=== PATIENT | female | born 1940 | race Caucasian/White ===

== ENCOUNTER 2017-03-21 13:30 | Inpatient (IN) | payer MEDICARE, OTHER ==
[~2017-03-21] VITALS: Ht 149.9 cm; Wt 79.8 kg
--- NOTE | ~2017-03-21 | ENPV ---
Vascular Lower Extremity Vein Mapping and Lower Extremities DVT Study Procedure Demographics Patient Name MANDA SOLOMON Date of Study 03/24/2017 Patient Number [id number] Gender Female Date of 1940 Age 76 Visit Number [id number] Height 59 Weight 154 Number Referring Jevon Lantigua MD Interpreting Jessica Lutz Physician Jessica Lutz Physician A MD Elizabeth Chambers Md Physician Ordering Jessica Lutz Press Feeder Physician A Wall Insulation Sprayer Kurt Mercer, [facility] Conclusions Summary No evidence of deep vein thrombosis in the right common femoral vein, right proximal femoral vein, and left lower extremity veins. The left greater saphenous vein is patent and suitable for grafting The right mid to distal femoral vein, popliteal vein, posterior tibial veins, peroneal veins, and the greater saphenous vein was not imaged secondary to bandages from post-op femur FX. Procedure Type of Study: Veins:Lower Extremity Vein Mapping, Vein Mapping, Lower Extremities DVT Study, Venous Duplex Lower Extremity Bilateral. Indications for Study:Pre-op CABG. Appropriate Use Criteria:8 Allergies - No known allergies. Patient Status:Routine. Study Location:Inpatient Portable. Technical Quality:Limited visualization due to wounds/dressings. - Preliminary reported to:Dr. Lopez. Risk Factors - The patient's risk factor(s) include: diabetes mellitus, dyslipidemia and treated arterial hypertension. - The patient's last creatinine was 0.9 mg/dl. Velocities are measured in cm/s ; Diameters are measured in cm Right Lower Extremities DVT Study Measurements Right 2D and Doppler Measurements + + + + +---------+------+--------+ !Location !Visualized!Compressibility!Thrombosis!Signal !Reflux!Reflux ! ! ! ! ! ! ! !(sec) ! + + + + +---------+------+--------+ !GSV Thigh !Yes !Yes !None !Pulsatile! ! ! + + + + +---------+------+--------+ !Common !Yes !Yes !None !Pulsatile! ! ! !Femoral ! ! ! ! ! ! ! + + + + +---------+------+--------+ !Prox !No ! ! ! ! ! ! !Femoral ! ! ! ! ! ! ! + + + + +---------+------+--------+ !Mid !No ! ! ! ! ! ! !Femoral ! ! ! ! ! ! ! + + + + +---------+------+--------+ !Dist !No ! ! ! ! ! ! !Femoral ! ! ! ! ! ! ! + + + + +---------+------+--------+ !Popliteal !No ! ! ! ! ! ! + + + + +---------+------+--------+ !Gastroc !No ! ! ! ! ! ! + + + + +---------+------+--------+ !PTV !No ! ! ! ! ! ! + + + + +---------+------+--------+ !Peroneal !No ! ! ! ! ! ! + + + + +---------+------+--------+ Left Lower Extremities DVT Study Measurements Left 2D and Doppler Measurements + + + + +---------+------+--------+ !Location !Visualized!Compressibility!Thrombosis!Signal !Reflux!Reflux ! ! ! ! ! ! ! !(sec) ! + + + + +---------+------+--------+ !GSV Thigh !Yes !Yes !None !Pulsatile!No ! ! + + + + +---------+------+--------+ !Common !Yes !Yes !None !Pulsatile!No ! ! !Femoral ! ! ! ! ! ! ! + + + + +---------+------+--------+ !Prox !Yes !Yes !None !Phasic !No ! ! !Femoral ! ! ! ! ! ! ! + + + + +---------+------+--------+ !Mid !Yes !Yes !None !Phasic !No ! ! !Femoral ! ! ! ! ! ! ! + + + + +---------+------+--------+ !Dist !Yes !Yes !None !Phasic !No ! ! !Femoral ! ! ! ! ! ! ! + + + + +---------+------+--------+ !Popliteal !Yes !Yes !None !Phasic !No ! ! + + + + +---------+------+--------+ !Gastroc !Yes !Yes !None !Phasic !No ! ! + + + + +---------+------+--------+ !PTV !Yes !Yes !None !Phasic !No ! ! + + + + +---------+------+--------+ !Peroneal !No ! ! ! ! ! ! + + + + +---------+------+--------+ Velocities are measured in cm/s ; Diameters are measured in cm + ++--------++--------+ !Superficial - Great Saphenous Vein !!Right !!Left ! + ++--------++--------+ !Location !!Diameter!!Diameter! + ++--------++--------+ !Sapheno Femoral Junction !!0.35 !!0.5 ! + ++--------++--------+ !GSV High Thigh !! !!0.25 ! + ++--------++--------+ !GSV Mid Thigh !! !!0.33 ! + ++--------++--------+ !GSV Low Thigh !! !!0.35 ! + ++--------++--------+ !GSV Knee !! !!0.32 ! + ++--------++--------+ !GSV High Calf !! !!0.31 ! + ++--------++--------+ !GSV Mid Calf !! !!0.23 ! + ++--------++--------+ !GSV Low Calf !! !!0.2 ! + ++--------++--------+ - Number of vein branches on the left side:1 above knee and 1 below knee. Signature dtt: Parul Lopez dtd: 03/24/17 1449 Physician Self Edit
--- NOTE | ~2017-03-21 | CON ---
PATIENT'S NAME: MANDA SOLOMON [facility] AGE: 76 Y [address] ROOM: [place] [address] LOCATION: GPCU ADMIT DATE: 03/21/2017 Consultation DISCHARGE DATE: FAMILY PHYSICIAN: Artem Escoto MD ATTENDING PHYSICIAN: NAHUM ZAPATA DATE OF CONSULTATION: 03/23/2017 REFERRING PHYSICIAN: MASOUD GARCIA MD REASON FOR CARDIOLOGY CONSULT: Chest pain. HISTORY OF PRESENT ILLNESS: This is a 76-year-old female admitted with a right distal femur fracture and is currently status post open reduction and internal fixation of that fracture. Her cardiac history includes paroxysmal atrial tachycardia with a cardiac ablation performed at [facility] about [address] Magana[address] She also has a history of hypertension and hyperlipidemia. Overnight during her postoperative period, she developed left- sided chest pain that she describes as pressure and palpitations. At the time of this consult, she is currently pain-free. She denies any recent complaints of presyncope, syncope, shortness of breath, dyspnea on exertion, nausea, or vomiting. She is also quite active at the age of 76 and is able to ambulate extensive distances and handle stairs without difficulties. Overall, she is able to describe activities that give her a MET evaluations score of greater than 3. Her fracture happened due to tripping over a dog at home and having a twisting motion of her leg with immediate pain to her right lower leg around her knee post fall. PAST MEDICAL HISTORY: As listed in the HPI, as well as type 2 diabetes mellitus and mild asthma. PAST SURGICAL HISTORY: 1. Tonsillectomy and adenoidectomy. 2. D and C. 3. Total right knee arthroscopy. 4. Left wrist fracture repair. 5. Paroxysmal atrial tachycardia ablation about 2 years ago. FAMILY HISTORY: The patient's mother had a history of congestive heart failure. Her father had a history of Hodgkin lymphoma. SOCIAL HISTORY: The patient is a former cigarette smoker. She smoked half a pack per day for PATIENT'S NAME: MANDA SOLOMON [facility] AGE: 76 Y [address] ROOM: [place] [address] LOCATION: GPCU ADMIT DATE: 03/21/2017 Consultation DISCHARGE DATE: FAMILY PHYSICIAN: Artem Escoto MD ATTENDING PHYSICIAN: NAHUM ZAPATA a total of 8 years. She denies alcohol or illicit drug use. CURRENT MEDICATIONS: 1. Heparin IV per ACS protocol. 2. Nitroglycerin IV as needed for chest pain. 3. Aspirin 81 mg p.o. daily. 4. Coreg 6.25 mg p.o. twice daily. 5. Os-Galdino plus D 500 mg p.o. daily. 6. Multivitamin one tablet p.o. daily. 7. Z-Gen one tablet p.o. daily. 8. NovoLog subcu on a mild sliding scale per a.c. and h.s. Accu-Cheks. MEDICATION ALLERGIES: No known medication allergies. REVIEW OF SYSTEMS: Pertinent positive review of systems as listed in the HPI. All other review of systems evaluated and negative. DIAGNOSTIC DATA: Cardiac enzyme trend shows a CPK of 345, then 425, then 490; CK-MB of 5.0, then 12.5, then 19.2; and troponin-I of 0.118, then 3.57, and finally 6.95. Basic metabolic panel shows a sodium of 142, potassium 4.0, BUN of 9, creatinine 0.6, and a glucose of 177. She has a magnesium of 1.8 and a proBNP of 4247. Her echocardiogram shows an estimated left ventricular ejection fraction of 20%. Full report available for review. PHYSICAL EXAMINATION: VITAL SIGNS: Temperature 97.8, pulse 106, respirations 16, blood pressure 126/61, and O2 saturation 98% on 1 L nasal cannula. The patient weighs 70.1 kg. SKIN: [place], warm, and dry. EYES: Sclerae clear. No xanthelasma. ENT: Oral mucosa is pink and moist. No jugular venous distention or carotid bruits. CHEST: Respirations are even and unlabored. Lung sounds are clear to bilateral upper lobes. They are diminished to bilateral lower lobes. ABDOMEN: Soft and nontender. MUSCULOSKELETAL: Equal muscle strength to upper and lower extremities bilaterally against resistance. Her right lower extremity is in an Vik wrap as well as an immobilizer, but sensation, circulation, and movement are all within normal limits. EXTREMITIES: Peripheral pulses palpable. No clubbing, cyanosis, or edema. PSYCHIATRIC: Alert and oriented. Mood and affect are appropriate. PATIENT'S NAME: MANDA SOLOMON [facility] AGE: 76 Y [address] ROOM: [id number] [place], [place] [address] [facility] ADMIT DATE: 03/21/2017 Consultation DISCHARGE DATE: FAMILY PHYSICIAN: Artem Escoto MD ATTENDING PHYSICIAN: NAHUM ZAPATA IMPRESSION AND PLAN: Per Dr. Lopez. 1. Non-ST elevated myocardial infarction. She did have complaints of chest pain and palpitations, and as of this dictation, she is status post selective coronary angiography and is pending a cardiothoracic surgery consult for coronary artery bypass grafting. We will continue her on guideline-directed medical therapy until that consult is completed and full recommendations are received. 2. History of paroxysmal atrial tachycardia, status post cardiac ablation about 2 years ago. We will try and get those records for full review from Dr. Magana's office. 3. Hypertension, currently well controlled. 4. Status post open reduction and internal fixation of a right distal femur fracture per Dr. Zapata. We will continue to monitor, evaluate, and treat as appropriate. Thank you for this consult. Thank you for allowing [facility] to interact in the care of this patient. PETER COVINGTON APRN FOR [facility] SONA WHALEN/abl /[id number] d: 03/23/17 1629 t: 04/08/17 1133, CONSULTATION REPORT
--- NOTE | ~2017-03-21 | ENPV ---
Carotid Duplex Study Demographics Patient Name MANDA SOLOMON Date of Study 03/24/2017 Patient Number [id number] Gender Female Date of 1940 Age 76 Visit Number [id number] Height 59 Weight 154 Number Referring Jevon Lantigua MD Interpreting Jessica Lutz Physician Jessica Lutz Physician A MD Elizabeth Chambers Md Physician Ordering Jessica Lutz Bone Glue Maker Physician A Domestic Technician Kurt Mercer [facility] Conclusions Summary The right proximal internal carotid artery has moderate, 50-69%, stenosis by heterogeneous/calcific plaque. The left proximal internal carotid artery has severe more than 70% stenosis by heterogeneous/calcific plaque. The velocity recorded is during a post extrasystolic beat however Bilateral vertebral arteries are antegrade. Procedure Type of Study: Cerebral:Carotid, Carotid Doppler Bilateral. Indications for Study:Pre-Op CABG and Pre-Op clearance. Appropriate Use Criteria:6 Allergies - No known allergies. Patient Status:Routine. Study Location:Inpatient Portable. Technical Quality:Adequate visualization. - Preliminary reported to:. Risk Factors - The patient's risk factor(s) include: diabetes mellitus, dyslipidemia and treated arterial hypertension. - The patient's last creatinine was 0.9 mg/dl. Velocities are measured in cm/s ; Diameters are measured in cm Carotid Right Measurements Carotid Left Measurements + +--------+--------+ + + + +--------+ --------+ + + !Location !PSV !EDV !Angle !%Stenosis ! !Location !PSV ! EDV !Angle !%Stenosis ! + +--------+--------+ + + + +--------+ --------+ + + !Prox CCA !134 !18 !56 ! ! !Prox CCA !123 ! 15 !56 ! ! + +--------+--------+ + + + +--------+ --------+ + + !Dist CCA !118 !21 !60 ! ! !Dist CCA !70 ! 10 !56 ! ! + +--------+--------+ + + + +--------+ --------+ + + !Prox ICA !160 !22 !60 !40-59% ! !Prox ICA !289 ! 55 !56 !75-80% ! + +--------+--------+ + + + +--------+ --------+ + + !Dist ICA !127 !30 !56 ! ! !Dist ICA !135 ! 40 !60 ! ! + +--------+--------+ + + + +--------+ --------+ + + !Prox ECA !127 ! !60 ! ! !Prox ECA !318 ! !54 ! ! + +--------+--------+ + + + +--------+ --------+ + + !Vertebral !61 !15 !56 ! ! !Vertebral !72 ! 21 !56 ! ! + +--------+--------+ + + + +--------+ --------+ + + !Subclavian !133 ! ! ! ! !Subclavian !125 ! ! ! ! + +--------+--------+ + + + +--------+ --------+ + + - There is antegrade vertebral flow noted on the right side. - There is antegrade verte bral flow noted on the left side. - Add'l Measurements:ICAPSV/CCAPSV 1.19.ICAEDV/CCAEDV 1.69. - Add'l Measurements:ICAPS V/CCAPSV 2.35.ICAEDV/CCAEDV 3.68. Signature dtt: Parul Lopez dtd: 03/24/17 1434 Physician Self Edit
--- NOTE | ~2017-03-21 | OR ---
PATIENT'S NAME: MANDA JACOBSEN [facility] AGE: 76 Y [address] ROOM: [place] [address] LOCATION: GICU ADMIT DATE: 03/21/2017 OR/Procedure Report DISCHARGE DATE: FAMILY PHYSICIAN: Artem Escoto MD ATTENDING PHYSICIAN: NAHUM ZAPATA SURGEON: Ceci Velasquez MD LIFT DRIVER: Lurdes Cali RN. DATE OF PROCEDURE: 03/27/2017 PROCEDURE: 1. Right radial arterial line placement. 2. Right internal jugular 9-Dutch sheath, central line placement. 3. 7-Dutch continuous cardiac output, [place]-Melissa catheter placement. INDICATIONS FOR PROCEDURE: 1. Need for perioperative xzfi-ky-rbyt blood pressure monitoring as well as frequent arterial blood gas analysis. 2. Need for central venous access for administration of fluid, blood products, and central venous pressure monitoring and [place]-Melissa catheter placement. 3. Need for perioperative yhwr-jk-[id number] pulmonary artery pressure monitoring and continuous cardiac output monitoring. PREOPERATIVE DIAGNOSES: 1. Multivessel coronary artery disease. 2. Hypertension. 3. Hyperlipidemia. 4. Diabetes mellitus type 2. 5. Right periprosthetic femur fracture. 6. Asthma. POSTOPERATIVE DIAGNOSES: 1. Multivessel coronary artery disease. 2. Hypertension. 3. Hyperlipidemia. 4. Diabetes mellitus type 2. 5. Right periprosthetic femur fracture. 6. Asthma. COMPLICATIONS: None noted. ESTIMATED BLOOD LOSS: Minimal. CONSENT: Informed consent was obtained preoperatively including discussion of risks, benefits, and alternatives. Ms. Jacobsen said that she has understood PATIENT'S NAME: MANDA JACOBSEN [facility] AGE: 76 Y [address] ROOM: [place] [address] LOCATION: GICU ADMIT DATE: 03/21/2017 OR/Procedure Report DISCHARGE DATE: FAMILY PHYSICIAN: Artem Escoto MD ATTENDING PHYSICIAN: NAHUM ZAPATA the above procedures, risks, benefits, alternatives, and agreed for me to proceed. DESCRIPTION OF PROCEDURE: In the preoperative area with the patient in supine position, right and left wrist supinated, sterile prep with ChloraPrep to each wrist, 1% lidocaine into subcutaneous tissues in a sterile fashion. Utilizing sterile technique, a 20-gauge Arrow catheter was used in separate attempts to cannulate both the left and the right artery, however, I was unable to thread the wire on each attempts. Pressure held and dressing applied over the area. We proceeded to the operating room. With the patient in supine position, nitrous oxide with oxygen at 50% administered via the anesthesia circuit. Right wrist supinated, sterile prep with ChloraPrep utilizing real-time ultrasound guidance in a sterile fashion, 1% lidocaine into subcutaneous tissues of the right wrist utilizing 20-gauge Arrow catheter in a sterile technique. The right radial artery was cannulated in first attempt without difficulty. Pulsatile blood flow. The catheter de-aired and flushed with saline solution. A needle and wire removed intact. Sterile occlusive Tegaderm dressing applied, good correlation of noninvasive blood pressure monitoring. The patient tolerated the procedures well. After induction of anesthesia, patient placed in Trendelenburg position. Ultrasound for confirmation of right internal jugular venous anatomy utilizing ChloraPrep to the right neck. Sterile full-body drape, sterile gown, sterile gloves used. Surgical mask and cap worn at all time. Utilizing 16-gauge needle, in an anterior approach, the right internal jugular vein was scanned at first attempt without difficulty. Nonpulsatile blood flow. Dark blood aspirated. Over a wire, a 9-Dutch sheath was inserted, 10 cm without difficulty. Wire and needle were removed intact. Catheter was sutured in place. Sterile occlusive Tegaderm dressing applied. Without a break in the above sterile technique, a 7-Dutch [place] continuous cardiac output [place]-Melissa catheter was floated through the previously placed right internal jugular central line into the SVC, right atrium, right ventricle, and pulmonary artery without difficulty. Initial pulmonary artery pressures were 46/24. Pulmonary capillary wedge pressure of 26 was obtained at 52 cm. Balloon placed in down position, catheter withdrawn to 48 cm. The patient tolerated the procedures well. Postoperative chest x-ray will be ordered. CECI VELASQUEZ MD PATIENT'S NAME: MANDA JACOBSEN [facility] AGE: 76 Y [address] ROOM: [place] [address] LOCATION: GICU ADMIT DATE: 03/21/2017 OR/Procedure Report DISCHARGE DATE: FAMILY PHYSICIAN: Artem Escoto MD ATTENDING PHYSICIAN: NAHUM ZAPATA RRS/modl /[id number] d: 03/27/17 1421 t: 03/28/17 1510, OPERATIVE SUMMARY
--- NOTE | ~2017-03-21 | CON ---
PATIENT'S NAME: MANDA SOLOMON [facility] AGE: 76 Y [address] ROOM: [facility] [place] [address] LOCATION: GPCU ADMIT DATE: 03/21/2017 Consultation DISCHARGE DATE: FAMILY PHYSICIAN: Artem Escoto MD ATTENDING PHYSICIAN: NAHUM ZAPATA DATE OF CONSULTATION: 03/23/2017 REFERRING PHYSICIAN: MASOUD GARCIA MD REQUESTING PHYSICIAN: Dr. Lopez. REASON FOR CONSULTATION: Coronary artery disease, multivessel. HISTORY OF PRESENT ILLNESS: The patient is a 76-year-old, white female, who on March 20, suffered a periprosthetic distal right femur fracture and was transferred from the [facility] to [facility] and was admitted for surgical remediation. This was performed by Dr. Zapata on March 22, consisting of an ORIF of the right periprosthetic distal femur. Following the procedure, the patient was transferred to the orthopedic floor here at [facility]. This morning, however, approximately 2:45 a.m., the patient began having chest pain. Hospitalists were contacted. Cardiac enzymes and EKG were performed. The patient did have elevated cardiac enzymes. The patient was transferred to the progressive care floor as per the advice of Dr. Lopez who then later took the patient to the cardiac catheterization lab. Findings in the lab included obstructive coronary artery disease to the LAD, diagonal, circumflex, and the right system. The patient did have an echocardiogram as well with an ejection fraction finding of 20%, mild pulmonary hypertension with RVSP of 39 mmHg. There was no significant valvular abnormalities noted. The patient does have a history of diabetes mellitus, type 2, which is in fairly good control. She also has a history of atrial tachycardia for which she underwent an ablation approximately 2 years previous with no known further complications. Dr. Cuellar did review the catheterization studies and did see the patient in consultation. PAST MEDICAL HISTORY: Illnesses: Hypertension, dyslipidemia, history of atrial tachycardia, anxiety, osteoarthritis, diabetes mellitus type 2, and mild intermittent asthma. Surgery/Procedures: Left wrist fracture, tonsillectomy, right total knee arthroplasty, right total hip arthroplasty, recent ORIF right femur, D and C, colonoscopy, and cardiac ablation. PATIENT'S NAME: MANDA SOLOMON [facility] AGE: 76 Y [address] ROOM: [id number] [place], [place] [address] LOCATION: [facility] ADMIT DATE: 03/21/2017 Consultation DISCHARGE DATE: FAMILY PHYSICIAN: Artem Escoto MD ATTENDING PHYSICIAN: NAHUM ZAPATA ALLERGIES: NO KNOWN DRUG ALLERGIES. SOCIAL HISTORY: The patient resides in [place]. She lives with her son. She is . She is retired from a career working as a registered nurse. She has a very remote history of tobacco use. No alcohol use. FAMILY HISTORY: Her mother had history with congestive heart failure. Her father had a history with Hodgkin lymphoma and she had a brother who has had a stroke and a valve replaced. MEDICATIONS: 1. Tylenol 650 mg q.4 hours p.r.n. pain. 2. Albuterol 2 puffs per inhalation q.4 hours p.r.n. wheezing. 3. Aspirin 325 mg daily. 4. Excedrin Migraine one tab p.o. b.i.d. 5. Os-Galdino 500 mg daily. 6. Benadryl 25 mg daily. 7. 1% hydrocortisone acetate applied topically p.r.n. rash. 8. Ibuprofen 200 mg daily. 9. Prinivil 5 mg daily. 10. Glucophage 850 mg b.i.d. 11. Multivitamin daily. 12. Vitamin B complex daily. SYSTEM REVIEW: GENERAL: The patient has not had any recent weight or appetite problems. She was in her general state of health as of March 20 with good mobility and no dysfunction until after she took a tumble over one of her dogs, which resulted in the right femur fracture. The findings of the cardiac disease were not of consideration until this event. HEENT: No visual complaints. She does wear glasses. No hearing complaints. She does have seasonal allergies. No difficulty swallowing. She does have lower denture. RESPIRATORY: No unusual cough. Some intermittent wheezing from asthma, which is mild. No shortness of breath, PND, or HARVEY. CARDIOVASCULAR: Prior to early this morning, the patient had not suffered any chest pain, chest pressure, or palpitations. She did have a history of tachycardia for which she underwent what is deemed a successful ablation. No intermittent claudication. Prior to surgery no known problems with excessive edema. GI: No ongoing nausea, vomiting, constipation, or diarrhea. The patient did PATIENT'S NAME: MANDA SOLOMON [facility] AGE: 76 Y [address] ROOM: [id number] [place], [place] [address] LOCATION: GPCU ADMIT DATE: 03/21/2017 Consultation DISCHARGE DATE: FAMILY PHYSICIAN: Artem Escoto MD ATTENDING PHYSICIAN: NAHUM ZAPATA have a recent bout with melena after she had taken ibuprofen for left knee pain. The patient does have a chronic left knee osteoarthritis and does get steroid injections. She uses the NSAIDs for the intermittent relief of pain. : Does have some urinary incontinence. MUSCULOSKELETAL: Generalized arthritic aches and pains with more pronounced left osteoarthritis. NEUROLOGIC: No frequent or severe headaches. No history of seizures, memory loss, or syncope. PSYCHIATRIC: Does have a history of some anxiety. ENDOCRINE: Does have a history of diabetes for which she does take medication. Her hemoglobin A1c is noted to be at 6.0 back in January of 2017. INTEGUMENT: No known skin diseases. PHYSICAL EXAMINATION: VITAL SIGNS: Blood pressure 97/53, pulse is 76, respirations 12, temp is 97.2, O2 saturations 99% on 1 L. Height is 149.86 cm and weight is 70.10 kg. GENERAL: The patient is very pleasant. She is somewhat somnolent. Family is here to answer some of the questions. HEENT: Atraumatic. The patient appears her stated age. EOMIs intact. Conjunctivae clear. LUNGS: Clear to auscultation in the anterior. CARDIOVASCULAR: Regular rate and rhythm. ABDOMEN: Obese, soft, nontender by 4 quadrants. Positive bowel sounds throughout. EXTREMITIES: The patient does have a right lower extremity immobilizer. She also has a right wrist band status post cardiac catheterization with some right hand swelling. NEUROLOGIC: Alert and oriented but somnolent. LABORATORY AND TEST RESULTS: CBC: WBC 6.5, hemoglobin 7.3, hematocrit 22.8, platelets are 128. INR is 0.95. Basic metabolic panel shows sodium at 142, potassium at 4.0, glucose at 177, calcium 8.7, BUN 9, creatinine 0.6. ProBNP is 4247. Her magnesium was 1.8. Echo and cardiac catheterization results as per HPI. IMPRESSION: 1. Myocardial infarction. 2. Depressed ejection fraction, 20%. 3. Diabetes mellitus. 4. Recent right femur fracture. 5. History of atrial tachycardia. RECOMMENDATIONS AND PLAN: Dr. Cuellar spoke to the patient and her family with regard to surgical revascularization. Per the review of the cardiac catheterization, the patient PATIENT'S NAME: MANDA SOLOMON [facility] AGE: 76 Y [address] ROOM: [place] [address] LOCATION: [facility] ADMIT DATE: 03/21/2017 Consultation DISCHARGE DATE: FAMILY PHYSICIAN: Artem Escoto MD ATTENDING PHYSICIAN: NAHUM ZAPATA will require 4-vessel bypass, this being to the LAD, diagonal, obtuse marginal, and PDA. In addition, given the depressed ejection fraction, she may require an intra-aortic balloon placement at the time of the surgery. This was all explained. Risks and benefits of surgery were given to the patient and her family. This included but were not limited to, bleeding, requiring transfusion or return to the operative suite, myocardial infarction, cerebrovascular accident, renal and/or pulmonary failure. Also discussed were arrhythmias and infection as well as operative and postoperative mortality. The patient is currently comfortable up on the progressive care floor. She is utilizing heparin and nitroglycerin. Her surgery will be scheduled for March 26 in the afternoon. The patient and family verbalize understanding of this. The patient consents to proceed to surgery. We will begin her preoperative evaluation. Certainly if anything changes with regard to chest pain, the patient will be taken to surgery on a more emergent basis. I would like to thank Dr. Lopez for allowing us to participate in the care of this pleasant lady. BISHNU GALDAMEZ APRN FOR [employer]UELLAR, DO QUILESQ/modl /[id number] d: 03/23/17 1704 t: 04/04/17 1553, CONSULTATION REPORT
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
--- NOTE | ~2017-03-21 | OR ---
PATIENT'S NAME: MANDA JACOBSEN [facility] AGE: 76 Y [address] ROOM: [place] [address] LOCATION: [facility] ADMIT DATE: 03/21/2017 OR/Procedure Report DISCHARGE DATE: FAMILY PHYSICIAN: Artem Escoto MD ATTENDING PHYSICIAN: NAHUM ZAPATA SURGEON: Nahum Zapata MD MANAGER SIGN: Heriberto Fitzgerald PA-C. DATE OF PROCEDURE: 03/22/2017 PREOPERATIVE DIAGNOSIS: Right distal periprosthetic fracture of the femur. POSTOPERATIVE DIAGNOSIS: Right distal periprosthetic fracture of the femur. PROCEDURES PERFORMED: 1. Open reduction and internal fixation of right periprosthetic distal femur fracture. 2. Use of intraoperative fluoroscopy, less than 1 hour. Use of INFUSE recombinant bone morphogenic protein to bone graft. ANESTHESIA: General endotracheal anesthesia with peripheral nerve blocks. FLUIDS: See Anesthesia report. ESTIMATED BLOOD LOSS: Minimal. TOURNIQUET: Right proximal thigh 250 mmHg. SPECIMENS: None. COMPLICATIONS: None. DISPOSITION: Stable in PACU. COUNTS: All counts were correct. IMPLANTS: Synthes right distal femur periarticular locking plate and screws. INDICATIONS: Ms. Jacobsen is a 76-year-old female, who underwent the noted procedures above. The risks, benefits, and alternatives pursuing surgical intervention were discussed with the patient and her family. She elected to proceed with surgery. I marked the patient's right lower extremity indicating the correct surgical site. Anesthesia was consulted for their perioperative evaluation of the patient. OPERATIVE REPORT IN DETAIL: The patient was brought from the holding area to PATIENT'S NAME: MANDA JACOBSEN [facility] AGE: 76 Y [address] ROOM: [place] [address] LOCATION: [facility] ADMIT DATE: 03/21/2017 OR/Procedure Report DISCHARGE DATE: FAMILY PHYSICIAN: Artem Escoto MD ATTENDING PHYSICIAN: NAHUM ZAPATA the operating room. A time-out was performed. General endotracheal anesthesia was administered. The patient's right lower extremity was prepped and draped in a sterile fashion. I turned my attention to the right leg. The Esmarch was used to exsanguinate the limb. The tourniquet was inflated to 250 mmHg. I began with a lateral incision through skin and subcutaneous tissue, tensor fascia goldie down through muscle to bone. I identified the fracture site. I then introduced intraoperative fluoroscopy. I identified the fracture. I had my PA clinic assistant pull traction across the fracture site and I placed 2 K-wires along with using a bone hook to reduce the distal femur fracture. The patient had a right total knee in place. I was therefore able to use this to help alignment of the reduction. I then introduced my plate. I provisionally pinned the plate both distally and proximally. I confirmed its position fluoroscopically. I cheated the plate distally in order to gain fixation in the cement mantle seeing that the fracture was rather distal. There was comminution at the fracture site and the patient was notably osteopenic. I then drilled for, measured, and placed a compression screw distally to achieve compression of the plate to the bone. I then drilled for, measured, and placed variable angle locking screws in order to achieve multiple points of fixation of the distal femur. Once distal fixation was achieved and confirmed fluoroscopically, I turned my attention to the proximal aspect of the plate. I drilled for, measured, and placed a compression screw to attempt to fixate the plate to the femoral shaft. I was unable to compress the plate completely down to the bone without losing the reduction distally. I therefore drilled for, measured, and placed locking screws creating a fixed angle construct proximally. I then fluoroscopically confirmed a well reduced and fixed periprosthetic distal femur fracture. I then took the knee through range of motion. The patient's range of motion was limited at best 0 to 90 degrees of flexion. This appears to corroborate with her contralateral knee that had also very limited range of motion. The wound was then copiously irrigated. I placed INFUSE bone graft to help in the healing process. Once the INFUSE was placed, I then used 0 Vicryl suture to approximate the tensor fascia goldie. 2-0 Vicryl suture was used to approximate the subcutaneous tissue. [place] were used to approximate the skin. Sterile dressing was placed in form of Xeroform, followed by 4x4 and Mepilex. The tourniquet was let down. The patient's limb reperfused. She was then dressed with Webril and Vik from the foot up to the proximal thigh. A knee PATIENT'S NAME: MANDA JACOBSEN [facility] AGE: 76 Y [address] ROOM: [address] [address] LOCATION: [facility] ADMIT DATE: 03/21/2017 OR/Procedure Report DISCHARGE DATE: FAMILY PHYSICIAN: Artem Escoto MD ATTENDING PHYSICIAN: NAHUM ZAPATA immobilizer was then placed. The patient was then transferred from the operating room table onto the stretcher and brought to recovery room in stable condition. There were no intraoperative complications noted. Of note, my PA, Heriberto Fitzgerald PA-C, played an integral role in the intraoperative care of this patient. This included preoperative positioning, intraoperative expert retraction, and closing and dressing functions. IMPRESSION: The patient is status post the noted procedures above. PLAN: The patient will be toe-touch weightbearing on the right lower extremity in a knee immobilizer. Postoperative pain control in the form of Percocet and IV morphine as needed for pain. Postoperative antibiotics will be administered per routine. DVT prophylaxis will be in the form of Lovenox. Physical Therapy and Occupational Therapy will be consulted for early ambulation and prevention of deconditioning. The hospitalist will continue to manage the patient's concomitant medical comorbidities. I will continue to monitor the patient closely in the postoperative period. MD MELIDA JASSO/modl /[id number] d: 03/23/17 0018 t: 03/23/17 0819, OPERATIVE SUMMARY
--- NOTE | ~2017-03-21 | CON ---
PATIENT'S NAME: LAURA JACOBSEN [facility] AGE: 76 Y [address] ROOM: [address] [place], [place] [address] LOCATION: G3N ADMIT DATE: 03/21/2017 Consultation DISCHARGE DATE: FAMILY PHYSICIAN: Artem Escoto MD ATTENDING PHYSICIAN: NAHUM ZAPATA REFERRING PHYSICIAN: MASOUD RAMSEY MD This is a consultation for Dr. Nahum Zapata for medical management. REASON FOR CONSULTATION: Medical clearance for right periprosthetic femur fracture. CHIEF COMPLAINT: Right knee pain. 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 She fell to her knees with her legs tucked underneath her and experienced immediate right knee pain greater than the left. Her son who lives with her assisted her back into the house and was put up in the recliner and elevated and iced her knee and took an ibuprofen. Still having significant pain this morning, she went and saw her primary care doctor who by x-ray found a right periprosthetic femur fracture. She was transported to [facility] for further evaluation and management by the Orthopedic Team. Laura has a past medical history to include paroxysmal atrial tachycardia, status post ablation approximately 2 years ago; type 2 diabetes mellitus, noninsulin-dependent and uncomplicated, on metformin with a recent hemoglobin A1c of 6.0 back in January. She does not currently check her sugars at home. She does also have a history of essential hypertension and hyperlipidemia, well controlled on her current medications. She also has history of mild asthma with worsening during seasonal allergies. Typically, rather relatively functional 76-year-old female who is able to ambulate for many blocks and flights of stairs without stopping. Her MET score is greater than 4. Currently, lying in bed without any complication, complaining of right knee pain, it is relatively controlled at rest. She denies any numbness or tingling into her legs. She does complain of pain with any movement. She denies any lightheadedness, dizziness, chest pain, palpitations, shortness of breath, or cough. No nausea or vomiting. She does tell me one point of pertinent information that her orthopedist in [place] had been treating her left knee with cortisone injections, she has had them x3 back last fall. She had been taking a large amount of ibuprofen in which she developed black tarry stools and has stopped NSAID use immediately. She never was fully evaluated by a provider. Her stools have normalized and PATIENT'S NAME: LAURA JACOBSEN [facility] AGE: 76 Y [address] ROOM: [place] [address] LOCATION: [facility] ADMIT DATE: 03/21/2017 Consultation DISCHARGE DATE: FAMILY PHYSICIAN: Artem Escoto MD ATTENDING PHYSICIAN: NAHUM ZAPATA she now takes acetaminophen for her joint pains. She has no history urinary problems. No burning, painfulness, or signs of retention, although a Valdez catheter has been placed at the outlying facility due to her decreased mobility and pain. REVIEW OF SYSTEMS: All review of systems was completed and determined negative other than mentioned above in the HPI. ALLERGIES: NONE. HOME MEDICATIONS: 1. Acetaminophen 325 mg 2 tablets every 4 hours as needed for pain. 2. Albuterol sulfate 2 puffs inhalation every 4 hours as needed for wheezing. 3. Aspirin 325 mg p.o. daily. 4. Gciygtf-gaumbcpykkuvp-qaismrld tablet 1 tablet p.o. twice daily as needed. 5. Calcium with vitamin D 500 mg 1 tablet p.o. every day. 6. Benadryl 25 mg p.o. every day as needed. 7. Hydrocortisone cream 1% one application topically every day as needed. 8. Ibuprofen 200 mg p.o. every day. 9. Lisinopril 5 mg p.o. every day. 10. Glucophage 850 mg p.o. twice daily. 11. Multivitamin 1 tablet p.o. every day. 12. Vitamin B complex 1 tablet p.o. every day. PAST MEDICAL HISTORY: To include: 1. Paroxysmal atrial tachycardia. 2. Asthma, mild, intermittent. 3. Hyperlipidemia. 4. Pww-vmoylaq-guzhrzuan type 2 diabetes mellitus. 5. Essential hypertension. 6. Obesity. PAST SURGICAL HISTORY: To include: 1. Cardiac ablation in 2013. 2. Right hip replacement. 3. Right knee replacement. 4. D and C. 5. T and A. PATIENT'S NAME: LAURA JACOBSEN [facility] AGE: 76 Y [address] ROOM: [address] [address] LOCATION: G3N ADMIT DATE: 03/21/2017 Consultation DISCHARGE DATE: FAMILY PHYSICIAN: Artem Escoto MD ATTENDING PHYSICIAN: NAHUM ZAPATA SOCIAL HISTORY: The patient is a retired RN, who lives at home with her son. She denies any alcohol use or illicit drug use. She denies any cigarette use. FAMILY MEDICAL HISTORY: 1. Mother had hypertension and congestive heart failure and is . 2. Father had Hodgkin lymphoma. PHYSICAL EXAMINATION: GENERAL: Laura is a 76-year-old, female, who looks and appears her stated age. HEENT: Her head is normocephalic, atraumatic. Eyes: Extraocular movements are intact. Pupils are equal, round, and reactive to light and accommodation. NECK: Supple without any lymphadenopathy or thyromegaly. CHEST: Equal symmetric expansion with LUNGS clear throughout all gardner. No wheeze. No adventitious sounds. Normal respirations. HEART: Regular rate and rhythm without any gallop or murmur. S1 and S2 present. No pedal edema noted. No JVD noted. ABDOMEN: Soft, round, nontender, and nondistended. No organomegaly appreciated. Bowel sounds heard in all 4 quadrants. : Deferred, although there is a Valdez catheter extending dependent drainage with clear yellow urine. EXTREMITIES: A right lower extremity immobilizer with joint effusion at the tibial component with point tenderness. Thigh compartments and calf compartments appear soft. She has positive motor flexion and extension. No clubbing or cyanosis noted. She does have varicose veins. NEUROLOGIC: Cranial nerves 2 through 12 are intact. LABORATORY DATA: Not available. DIAGNOSTIC DATA: X-rays from outlying facility show a right 3-view knee x-ray showing bones with knee arthroplasty with cortical irregularity along the femoral component with an impression of periprosthetic fracture. There is a moderate joint effusion as well. IMPRESSION AND PLAN: 1. Medical clearance for a right periprosthetic femur fracture. The patient's MET score is greater than 4. We will wait and obtain preoperative labs with further recommendations pending; however, the patient appears to be an average risk for an orthopedic procedure and should be cleared for surgery pending any abnormal results. 2. Paroxysmal atrial tachycardia, status post cardiac ablation. We would PATIENT'S NAME: LAURA JACOBSEN [facility] AGE: 76 Y [address] ROOM: [address] [address] LOCATION: G3N ADMIT DATE: 03/21/2017 Consultation DISCHARGE DATE: FAMILY PHYSICIAN: Artem Escoto MD ATTENDING PHYSICIAN: NAHUM ZAPATA consider on tele observation in the postoperative phase to ensure there is no arrhythmia. Optimizing all electrolytes appropriately. 3. Diabetes mellitus, type 2, uncomplicated. Reportedly recent A1c 6.0 back in January. We will continue with sliding scale insulin to cover any blood glucose needs. We will check blood glucose before each meal and at bedtime. Utilize a corrective scale. We will hold off on her metformin in light of a possible procedure. 4. Essential hypertension, appears pretty well controlled. Continue with her home lisinopril. 5. Hyperlipidemia. Continue with diet control and exercise. Education was given. 6. Mild asthma, does not appear in any acute distress. We will provide her with albuterol nebulizer treatments as needed and encourage healthy pulmonary toileting in the pre and postoperative phase. 7. Seasonal allergies. 8. Deep venous thrombosis prophylaxis. Continue with pneumatic compression devices as anticoagulation is contraindicated with possible surgical intervention in the near future. 9. Full code. Total time in consultation was 35 minutes reviewing the chart and updating the patient on the line of management. I also reviewed with Dr. Mick Ramsey. All questions were answered with statements of understanding. Thank you for this medical consultation of Mrs. Jacobsen. SHELTON OVERTON APRN, APRN FOR MD MARTIN PHELAN/celi /[id number] d: t: 03/21/17 2318, CONSULTATION REPORT
--- NOTE | ~2017-03-21 | CATH ---
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 Informed consent was obtained in the written and verbal form after the risks and benefits were explained. The patient had no further questions and agreed to proceed. The planned puncture-incision site(s) were shaved and prepped with ChloraPrep and draped in the usual sterile manner. Conscious sedation, supplemental oxygen, and pain control medications were delivered by a registered nurse under physician guidance. Surface ECG rhythm, blood pressure measurement, and pulse oximetry were monitored throughout the procedure. Arterial access. The access site was infiltrated with lidocaine. The vessel was entered with the Seldinger technique. A sheath was advanced into the vessel and used for catheter placement. Selective left coronary angiography. A catheter was advanced into the left coronary vessel ostium under Fluoroscopic guidance. Contrast was injected by hand. Images were obtained in multiple projections. Selective right coronary angiography. A catheter was advanced into the right coronary vessel ostium under fluoroscopic guidance. Contrast was injected by hand. Images were obtained in multiple projections. Left heart catheterization. A catheter was advanced across the aortic valve to the left ventricle under fluoroscopic guidance. Resting hemodynamics were obtained. Arterial artery hemostasis was achieved. The patient was transferred to a regular nursing floor via cart accompanied by a nurse. The patient left the laboratory in stable condition. Diagnostic Cath Status: Elective Procedure Procedure Type Diagnostic procedure:Angiography:, Coronary Angios w/LHC, LHC Indications: Non-ST elevation MS. The procedure was explained in detail to the patient. Risks, complications and alternative treatments were reviewed. Written consent was obtained. Medications Reviewed with Patient prior to Procedure. Angiographic Findings Dominance: Right Cardiac Arteries and Lesion Findings LMCA: Abnormal.20% stenosis LAD: Abnormal.100% stenosis prox LCx: Abnormal.30% stenosis RCA: Abnormal.100% mid stenosis Procedure Data Procedure Date Date: 03/23/2017Start: 10:32 AMEnd: 11:38 AM Entry Locations - Retrograde Percutaneous access was performed through the Right Radial artery (Primary location). A 6 Fr sheath was inserted. Hemostasis was successfully obtained using an R band. Procedure Medications Order and Administration + + +-------+-------+ !Time !Medication !Dosage !Route ! + + +-------+-------+ !03/23/2017 !PAE Radial Cocktail: Heparin 5000 units, ! !I.A. ! !10:42 AM !Nitroglycerin 200mcg, Verapamil 3 mg ! ! ! ! !(ACC_3) ! ! ! + + +-------+-------+ Devices Used - A6 Fr. BS JR 4 Diag. Catheterwas used for:Right coronary angiography. - A6 Fr. BS JL 3.5 Diag. Catheterwas used for:Left coronary angiography.Unable to cannulate the vessel. - A5 Fr. Ultimate 1 Diag. Catheterwas used for:Left coronary angiography.Unable to cannulate the vessel. - A6 Fr. BS AL1 Diag. Catheterwas used for:Left coronary angiography. Contrast Material - Isovue 87138 ml Fluoroscopy Time: Diagnostic: 9:36 minutes. Total: 9:36 minutes. Fluoroscopy Dose: Diagnostic: 667 mGy. Total: 667 mGy. Estimated Blood Loss: 20 ml. Medical History Allergies - No known allergies. Risk Factors The patient risk factors include:treated hypercholesterolemia, treated hypertension, family history of premature CAD, diabetes mellitus, last creatinine: 0.9 mg/dl, creatinine clearance: 57.73 ml/min and dyslipidemia. Admission Data Admission Date: 03/21/2017 Admission Time: 04:00 PM Admit Source: Emergency department Insurance Payors: Medicare. Admission Medications + +------+------+ + + + + !Medication !Dosage!Times !Last !Last !Administered !Comments ! ! ! !Per !Delivery !Delivery ! ! ! ! ! !Day !Date !Time ! ! ! + +------+------+ + + + + !JOVON ! ! ! ! ! ! ! !Inhibitor ! ! ! ! ! ! ! !(any) ! ! ! ! ! ! ! + +------+------+ + + + + !Aspirin ! ! ! ! ! ! ! !(any) ! ! ! ! ! ! ! + +------+------+ + + + + Clinical Evaluation Leading to Procedure - The patient's CAD presentation was assessed as: Non-STEMI. - The patient's anginal syndrome during the past two weeks was assessed as: Class IV according to the [place] Cardiovascular Society Classification System (CCS). - The patient has been in a state of heart failure within the past two weeks. - The patient's heart failure status was assessed as NYHA Class II, with CHF symptoms of HARVEY. Snapshots Hemodynamics Condition: Rest O2 Consumption: Estimated: 153.43Heart Rate: 76 bpm Pressures (mmHg) +-----+ + !Site !Pressure ! +-----+ + !AO !98/46 (68) ! +-----+ + !LV !105/7 ,15 ! +-----+ + !LV !108/9 ,21 ! +-----+ + Shunts Oxygen Values O2 Capacity 103.36 O2 Consumption 153.43 Signatures dtt: Parul Lopez dtd: 03/23/17 1032 Physician Self Edit
--- NOTE | ~2017-03-21 | HP ---
[facility] 76 Y [address] ROOM: [address] [address] LOCATION: [facility] ADMIT DATE: 03/21/2017 History & Physical DISCHARGE DATE: FAMILY PHYSICIAN: Artem Escoto MD ATTENDING PHYSICIAN: NAHUM ZAPATA DATE OF SERVICE: CHIEF COMPLAINT: Right knee pain. HISTORY OF PRESENT ILLNESS: The patient is a 76-year-old female who presented to the [facility] with complaints of right knee pain. The patient says that last night she had gotten back from watching fireworks and going to [employer] after getting some items and bringing them in the house. When her dog ran past her and knocked her down, the patient's left leg gave out from under and went under her right. The mechanism of injury was a twisting motion of her knee. After the injury, the patient had immediate right knee pain and difficulty bearing weight. She described the pain as severe. Again, she was seen in [place] [facility] where she was found to have a right periprosthetic distal femur fracture. Dr. Mcgowan was contacted, he did accept an admission for Dr. Zapata at that time. PAST MEDICAL HISTORY: Includes paroxysmal atrial tachycardia, asthma, osteoarthritis, history of diverticulosis, hyperlipidemia, diabetes mellitus type 2, hypertension, and obesity. PAST SURGICAL HISTORY: Includes right knee replacement, ablation for the paroxysmal atrial tachycardia, right hip surgery, dental extractions, dilatation and curettage of uterus, and tonsillectomy adenoidectomy. ALLERGIES: THE PATIENT HAS NO KNOWN DRUG ALLERGIES. HOME MEDICATIONS: 1. Acetaminophen 325 mg 2 tabs every 4 hours as needed for pain. 2. Albuterol inhaler 8.5 g 2 puffs inhaled every 4 hours as needed. 3. Aspirin 325 mg p.o. daily. 4. Aspirin/acetaminophen/caffeine 1 tab p.o. twice a day p.r.n. pain. 5. Calcium with vitamin D 500 mg 1 tab p.o. daily. 6. Benadryl 25 mg daily p.r.n. 7. Hydrocortisone cream 2.8 g 1 application topical every day p.r.n. 8. Ibuprofen 200 mg p.o. daily p.r.n. PATIENT'S NAME: JUANITO [facility] AGE: 76 Y [address] ROOM: [address] [place], [place] [address] LOCATION: [facility] ADMIT DATE: 03/21/2017 History & Physical DISCHARGE DATE: FAMILY PHYSICIAN: Artem Escoto MD ATTENDING PHYSICIAN: NAHUM ZAPATA 9. Lisinopril 10 mg half a tab p.o. daily. 10. Metformin 850 mg p.o. b.i.d. 11. Multivitamin 1 tab p.o. daily. 12. Vitamin B complex 1 tab p.o. daily. SOCIAL HISTORY: The patient is a . She denies smoking. Has occasional alcohol use and denies any illegal drug use. FAMILY HISTORY: Positive for hypertension in her mother. The patient's father had a history of Hodgkin lymphoma. Mother had a history of congestive heart failure. REVIEW OF SYSTEMS: Positive for some urinary frequency and urgency. Otherwise, a 10-point review of systems is negative other than what is stated in the HPI. PHYSICAL EXAMINATION: CONSTITUTIONAL: The patient is a pleasant 76-year-old female patient who when seen was in no acute distress, who is alert and oriented. SKIN: Warm, dry, and intact. HEENT: Head was atraumatic and normocephalic. Extraocular movements intact. Mouth was moist. Oropharynx was clear. NECK: Supple. Trachea was midline. HEART: Regular rate and rhythm. RESPIRATIONS: Even and nonlabored. ABDOMEN: Soft, nontender, and nondistended. : Deferred. MUSCULOSKELETAL: Bilateral lower extremities compartments were soft. The patient's left knee has limited range of motion secondary to osteoarthritis as well as a small knee joint effusion. The patient's right knee, there was a well-healed surgical scar on the anterior aspect of the knee. There was a swelling noted at the right knee and there was tenderness to palpation. The patient was in a knee immobilizer. Left ankle range of motion of approximately 5 degrees of dorsiflexion to 40 degrees of plantar flexion with strength 5/5. Right ankle had a range of motion of 10 degrees of dorsiflexion and 40 degrees of plantar flexion with strength 5/5. On the left foot, there was severe hallux valgus of left great toe. VASCULAR: There were palpable dorsalis pedis pulses bilaterally. . NEUROLOGIC: Cranial nerves 2-12 grossly intact. Sensation was grossly intact to light touch in bilateral lower extremities. LABORATORY DATA: Unavailable at the time. X-ray per Radiology report shows right knee PATIENT'S NAME: MANDA SOLOMON [facility] AGE: 76 Y [address] ROOM: [address] [address] LOCATION: [facility] ADMIT DATE: 03/21/2017 History & Physical DISCHARGE DATE: FAMILY PHYSICIAN: Artem Escoto MD ATTENDING PHYSICIAN: NAHUM ZAPATA arthroplasty with femoral component periprosthetic fracture. X-rays reviewed with Dr. Zapata showed the same findings. IMPRESSION: Periprosthetic right distal femur fracture. PLAN: The patient was admitted to a floor bed here at [facility]. She will be kept under adequate pain control through her hospitalization. At this time, she will be kept nonweightbearing on the right lower extremity pending surgery. We will obtain a CT of her right femur tonight. As long as the patient's medical care, we will plan to proceed to surgery tomorrow. Surgical intervention will include open reduction internal fixation of the patient's right distal periprosthetic femur fracture. Hospitalist Service was consulted for medical management and preoperative medical clearance. ARAVIND MCGOWAN PA-C FOR MD LOVE JASSO/celi /[id number] D: [id number] T: [id number] HISTORY & PHYSICAL
--- NOTE | ~2017-03-21 | ECHO ---
Transthoracic Echocardiography Report (TTE) Demographics Patient Name MANDA SOLOMON Date of Study 03/23/2017 M Patient Number [id number] Visit Number [id number] Date of 1940 Room Number G3302 Gender Female Number Age 76 year(s) Referring Jevon Lantigua MD Electrician Underground Sharmin RVT, RDCS Physician Ernestina Physician Interpreting Jessica Johnson Lens And Frames Prescription Clerk Physician Supervising Ordering Areli Cuellar MD, MD/MLP Physician Nurse Stress Manager Beverage Conclusions Contractility Score Summary Summary The estimated left ventricular ejection fraction is 20%. Diastolic assessment reveals Grade I diastolic dysfunction. The left ventricle is borderline dilated . Akinetic LAD territory The left atrium is moderately dilated. Mild mitral annular calcification. Mild mitral regurgitation by color Doppler. Mild tricuspid regurgitation by color Doppler. There is mild pulmonary hypertension. The pulmonary pressure (RVSP) is 39 mmHg. Procedure Type of Study TTE procedure:2D Echocardiogram, M-Mode, Doppler , Color Doppler. Procedure Date Date: 03/23/2017 Start: 06:56 AM Study Location: Inpatient Portable Technical Quality: Adequate visualization Indications:Chest pain. Additional Indications:Dr Giraldo notified of EF Appropriate Use Criteria: 9 Patient Status: Routine HR: 85 bpm BP: 97/54 mmHg M-Mode/2D Measurements LV Diastolic Dimension: 4.72 cm LV Systolic Dimension: 4.13 cm LV Septum Diastolic: 0.88 cm LV PW Diastolic: 0.86 cm Cardiac Output: 2.7 l/min LA Dimension: 3.2 cm LVOT: 1.7 cm RV Base: 2.59 cm LVOT VTI: 14 cm RV Mid: 2.02 cm LV Stroke volume: 31.76 ml TAPSE: 2.51 cm Doppler Measurements AV Peak Velocity: 1.76 m/s MV Peak E-Wave: 0.97 m/s AV Peak Gradient: 12.39 mmHg MV Peak A-Wave: 1.15 m/s AV Mean Gradient: 9 mmHg MV E/A Ratio: 0.84 LVOT Peak Velocity: 0.61 m/s MV P1/2t: 48 msec TR Gradient:35.76 mmHg PV Peak Velocity: 0.84 m/s Estimated RAP:3 mmHg PV Peak Gradient: 2.84 mmHg Estimated RVSP: 39 mmHg Estimated PASP: 38.76 mmHg E' Septal Velocity: 0.06 m/s A' Septal Velocity: 0.09 m/s E' Lateral Velocity: 0.06 m/s A' Lateral Velocity: 0.17 m/s Findings Left Ventricle Diastolic assessment reveals Grade I diastolic dysfunction. The left ventricle is borderline dilated . Akinetic LAD territory Right Ventricle Normal right ventricle structure and function. Left Atrium The left atrium is moderately dilated. Right Atrium Normal right atrial size. Mitral Valve Mild mitral annular calcification. Mild mitral regurgitation by color Doppler. Aortic Valve The aortic valve is mildly sclerotic. Tricuspid Valve Mild tricuspid regurgitation by color Doppler. There is mild pulmonary hypertension. The pulmonary pressure (RVSP) is 39 mmHg. Pulmonic Valve The pulmonic valve is not well visualized. Pericardial Effusion No evidence of pericardial effusion. Pleural Effusion No evidence of pleural effusion. Signature dtt: Parul oLpez dtd: 03/23/17 0656 Physician Self Edit
--- NOTE | ~2017-03-21 | OR ---
PATIENT'S NAME: MANDA [facility]ACOBSEN [facility] AGE: 76 Y [address] ROOM: [facility] [place] [address] LOCATION: GPCU ADMIT DATE: 03/21/2017 OR/Procedure Report DISCHARGE DATE: 04/03/2017 FAMILY PHYSICIAN: Artem Escoto MD ATTENDING PHYSICIAN: Carrington Parisi SURGEON: Kiran Fragoso DO COTTON GINNER HELPER: DATE OF PROCEDURE: 03/27/2017 PREOPERATIVE DIAGNOSES: 1. Coronary artery disease, multivessel. 2. Non ST-segment myocardial infarction, periop open reduction and internal fixation, right femur. 3. Left ventricular ejection fraction 20%. 4. Anemia. POSTOPERATIVE DIAGNOSES: 1. Coronary artery disease, multivessel. 2. Non ST-segment myocardial infarction, periop open reduction and internal fixation, right femur. 3. Left ventricular ejection fraction 20%. 4. Anemia. PROCEDURE PERFORMED: 1. Insertion of right femoral artery intraaortic balloon pump. 2. Coronary artery bypass grafting x4, left internal mammary artery to the left anterior descending, reverse saphenous vein graft to the diagonal, reverse saphenous vein graft to the obtuse marginal, and reverse saphenous vein graft to the right coronary artery. REFERRING PHYSICIAN: Parul Lopez MD. BRIEF HISTORY: Mrs. Jacobsen is a 76-year-old, who presented to the hospital on 03/21, where she was found to have a distal femur fracture at the site of a previous replacement. She was taken to surgery on 03/22 where a distal periprosthetic fracture of the femur was reduced and internally fixated. The evening of 03/22, she was ruled in for a moz-BP-zaofcal myocardial infarction. She was taken to the coronary laborer cheesemaking and found to have severe multivessel disease. We were consulted for revascularization. She was also found to have severe LV dysfunction. Given the long discussions with her and her family, decision was made to bring her to the operative suite on 03/27. PROCEDURE: She was sterilely prepped and draped in the usual fashion. Her surgically repaired leg was prepped in accordance to Dr. Parisi' wish for keeping the leg as straight as possible. Prior to starting our sternotomy, we PATIENT'S NAME: MANDA [facility] AGE: 76 Y [address] ROOM: [address] [place], [place] [address] LOCATION: GPCU ADMIT DATE: 03/21/2017 OR/Procedure Report DISCHARGE DATE: 04/03/2017 FAMILY PHYSICIAN: Artem Escoto MD ATTENDING PHYSICIAN: Carrington Parisi accessed the right femoral artery. With the Seldinger technique, we placed a 34-Belarusian intraaortic balloon pump and began counterpulsation which certainly helped her blood pressure and her ejection fraction on echocardiogram. Sternal incision was then made. Concurrently to this, saphenous vein was harvested endoscopically. The sternum was divided in the midline with sternal saw, Shannan, and electrocautery was used for hemostasis along the marrow and sternal edges. We then placed a mammary retractor and harvested the left internal mammary artery in standard fashion with the surgical clips and electrocautery and then heparinized the patient. The mammary was then divided and prepared for bypass. Mammary retractor was removed and a sternal retractor was placed. Pericardium was opened and a pericardial well was created. Cannulation suture was then placed in the ascending aorta and right atrium for bypass and cardioplegia cannulas, and we cannulated the patient connected to bypass pump without difficulty. The vein was then prepared for bypass. An adequate ACT had been achieved, and cardiopulmonary bypass was initiated. Crossclamp was applied. Antegrade and retrograde cardioplegia was given along with topical cold saline and the heart arrested nicely. The right coronary artery was identified at the bifurcation and opened. End-to-side anastomosis was then created and the vein sized appropriately and connected to cardioplegia system. Another 500 mL of the vein graft and retrograde cardioplegia was given and this was done after each venous distal anastomosis. Similar venous distal anastomoses were then created to the obtuse marginal and then to the diagonal, and then we anastomosed the left internal mammary artery to the LAD. Bulldog was removed from the internal mammary showing distal flow and an intact anastomosis. The cross-clamp was now removed and a partial occlusion clamp was applied. During cardiopulmonary bypass, the balloon pump was internal at 80. During proximal formation, spontaneous sinus rhythm returned and we returned the balloon pump then to one-to-one. Our proximal was performed with 4-0 punches and 6-0 Prolene. During this time period, warm blood was given via the vein grafts and via the retrograde cannula. Once our proximals were formed, the partial occlusion clamp was removed. Vein grafts de- aired. Bulldog was removed, and distal flow was given. Warm blood was now discontinued. The retrograde cannula was removed. Ventilations were initiated. Two atrial and one ventricular temporary pacemaking wires were placed and we weaned from bypass without difficulty. The balloon pump as noted was at one-to- one. We were on epinephrine at 2 mcg and Levophed at 0.3 mcg. The patient was decannulated and appropriate volume returned from the pump to the patient. Protamine was given. We then placed 4 chest tubes, one left pleural, one right pleural, one posterior pericardial, and one anterior mediastinal. Copious amounts of antibiotic-infused saline were used to irrigate the sternum and mediastinum. The sternum was approximated with the ZipFix system and soft tissues closed in layered fashion. The patient tolerated the procedure well, was transferred to the intensive care unit in stable condition. PATIENT'S NAME: MANDA [facility] AGE: 76 Y [address] ROOM: [place] [address] LOCATION: GPCU ADMIT DATE: 03/21/2017 OR/Procedure Report DISCHARGE DATE: 04/03/2017 FAMILY PHYSICIAN: Artem Escoto MD ATTENDING PHYSICIAN: Carrington Parisi DO GETACHEW MORALES/abl /[id number] d: 04/10/17 1153 t: 04/11/17 0754, OPERATIVE SUMMARY
--- NOTE | ~2017-03-21 | OR ---
PATIENT'S NAME: MANDA JACOBSEN [facility] AGE: 76 Y [address] ROOM: [place] [address] LOCATION: GICU ADMIT DATE: 03/21/2017 OR/Procedure Report DISCHARGE DATE: FAMILY PHYSICIAN: Artem Escoto MD ATTENDING PHYSICIAN: NAHUM ZAPATA SURGEON: Ceci Velasquez MD PLASTIC FRAME INSERTER: None. DATE OF PROCEDURE: 03/27/2017 PROCEDURE PERFORMED: Intraoperative transesophageal echocardiogram. INDICATIONS FOR PROCEDURE: Need for visualization of cardiac structures and function of both prior and immediately following coronary artery bypass grafting. PREOPERATIVE DIAGNOSES: 1. Ischemic cardiomyopathy. 2. Multivessel coronary artery disease. 3. Hypertension. 4. Hyperlipidemia. 5. Diabetes mellitus, type 2. 6. Asthma. POSTOPERATIVE DIAGNOSES: 1. Ischemic cardiomyopathy. 2. Multivessel coronary artery disease. 3. Hypertension. 4. Hyperlipidemia. 5. Diabetes mellitus, type 2. 6. Asthma. COMPLICATIONS: None noted. ESTIMATED BLOOD LOSS: None. CONSENT: Informed consent was obtained preoperatively including discussion of risks, benefits, and alternatives. Ms. Jacobsen stated her understanding of the above procedures, risks, benefits, and alternatives and agreed for me to proceed. PROCEDURE IN DETAIL: After the induction of anesthesia, the patient was placed in a supine position. Orogastric tube was placed without difficulty. Suction and removed. An iE33 transesophageal echocardiogram was placed through the patient's mouth, posterior pharynx, esophagus, and stomach without difficulty. Please see saved images for further analysis. PATIENT'S NAME: MANDA JACOBSEN [facility] AGE: 76 Y [address] ROOM: [place] [address] LOCATION: GICU ADMIT DATE: 03/21/2017 OR/Procedure Report DISCHARGE DATE: FAMILY PHYSICIAN: Artem Escoto MD ATTENDING PHYSICIAN: NAHUM ZAPATA Prior to bypass, images did reveal moderate left ventricular dysfunction with left ventricular ejection fraction of 30%. The patient does have severe hypokinesis of the apical sandhu, lateral, mid, papillary, mid inferior, posterior lateral, and anterior sandhu. The patient does have mild hypokinesis of all basal segments as well. The patient does have no evidence of patent foramen ovale by both agitated saline and Doppler analysis. The patient does have mild mitral regurgitation. There was no aortic stenosis noted. There was trace aortic insufficiency. No pulmonary insufficiency noted. There was grade 2 diastolic dysfunction. Grade 3 atheromatous disease of the ascending aorta and descending aorta. There was anterior aortic balloon pump just distal to the descending arch. The patient does have right ventricular moderate dysfunction, however, right ventricle was not distended. There was moderate mitral annular calcification. Post bypass views do illustrate a slightly increased injection fraction of 35%. Wall motion essentially unchanged. There was mild right ventricular dysfunction improved from moderate. There was increased in the patient's mitral regurgitation with the estimated to be moderate mitral regurgitation with a vena contracta of 0.483 cm. There was no aortic insufficiency noted. There appears to be no color flow disturbance of the ascending aorta. Intra- aortic balloon pump was unchanged in position. At the completion of the procedure, the transesophageal echocardiogram probe was removed intact. No blood was noted on the probe around the patient's posterior oropharynx. CECI VELASQUEZ MD RRS/modl /[id number] d: 03/27/17 2354 t: 03/28/17 1512, OPERATIVE SUMMARY
[2017-03-21] MEDS ORDERED: PROAIR HFA8.5 GM INH (16:54)
[2017-03-21] MEDS ORDERED: GLUCOPHAGE850 MG PO (16:55)
[2017-03-21] MEDS ORDERED: PRINIVIL OR ZES10 MG PO (16:55)
[2017-03-21] MEDS ORDERED: PAIN RELIEVER PO (16:57)
[2017-03-21] MEDS ORDERED: THERAGRAN-M1 TAB PO (16:58)
[2017-03-21] MEDS ORDERED: OSCAL + D500 MG PO (16:58)
[2017-03-21] MEDS ORDERED: HYDROCORTISON28.4 G2 TOP (16:59)
[2017-03-21] MEDS ORDERED: ASPIRIN EC325 MG PO (17:00)
[2017-03-21] MEDS ORDERED: BENADRYL25 MG PO (17:00)
[2017-03-21] MEDS ORDERED: B COMPLETE1 EACH PO (17:12)
[2017-03-21] MEDS ORDERED: ADVIL200 M1 PO (17:13)
[2017-03-21] MEDS ORDERED: TYLENOL325 MG PO (17:13)
--- NOTE | 2017-03-21 17:16 | NUR ---
Pt is 76 y/o female admit for fx'd R)femur for . Hospitalist to consult to manage medical prob. No allergies. [place] and her son and a friend of his, live with her. Hx DM type 2,htn,hyperlipids, PAT w cardiac ablation,seasonal allergies,OA in left knee,arthritis in general. Pt alert and oriented x3. Pt states she returned home late last night after a March 20 celebration and let her dogs loose. The dogs started chasing one another and her black lab knocked her down. She came via ambulance from [place] [facility]. Plan is for surgery tomorrow.
--- NOTE | 2017-03-21 17:59 | NUR ---
Significant Event:PT ADMITTED TO ROOM AT 1555 PER AMBULANCE CREW PER CART. A/O AND COOPERATIVE. DENIES PAIN. ABOVE THE KNEE SPLINT ON RIGHT LEG AND FEMUR FRACTURE PER XRAY FROM [facility]. BOO CATHETER PRESENT WITH CLEAR YELLOW URINE. IV RIGHT ANTERIOR ARM S/L'D. HAS BEEN NPO. HX DIABETES TYPE 2. PLAN TO DO SURGERY TOMORROW. REMAINS ON BEDREST. STATES HAS STRESS INCONTINENCE AND PROLAPSE IN VAGINA. NO OTHER OPEN AREAS ON SKIN. STATES FEELS SORE ALL OVER FROM FALL. STATES DOG TRIPPED HER DURING THE NIGHT. Follow up:
[2017-03-21 20:30] LABS: BILIRUBIN URINE NEGATIVE (NEGATIVE); BLOOD URINE 50 /UL (NEGATIVE); COLOR URINE YELLOW (YELLOW); GLUCOSE URINE NEGATIVE (NEGATIVE); KETONE URINE NEGATIVE (NEGATIVE); LEUKOCYTES URINE 25 /UL (NEGATIVE); NITRITE URINE NEGATIVE (NEGATIVE); PROTEIN URINE 15 mg/dL (NEGATIVE); TURBIDITY URINE CLEAR (CLEAR); UROBILINOGEN URINE NORMAL (NORMAL)
[2017-03-21 20:41] LABS: BACTERIA URINE FEW (NEGATIVE); MUCUS URINE 2+ (NEGATIVE)
[2017-03-21 20:45] LABS: BASOPHIL % 0.5 %; EOSINOPHIL # 0.1 K/uL (0.0-0.5); EOSINOPHIL % 1.9 %; HEMATOCRIT 28.1 % (33.0-46.0); IMMATURE GRANULOCYTE % 0.4 %; LYMPHOCYTE # 1.4 K/uL (0.8-4.0); LYMPHOCYTE % 18.4 %; MCH 30.8 pg (27.0-34.0); MCV 96.2 fl (83.0-98.0); MONOCYTE # 0.4 K/uL (0.0-1.0); MONOCYTE % 5.6 %; MPV 9.3 fl (9.4-12.4); NEUTROPHIL # (ANC) 5.5 K/uL (1.8-7.8); NEUTROPHIL % 73.2 %; NRBC % 0 /100WBC (0-0.00); PLATELET COUNT 180 K/uL (150-450); RBC 2.92 M/uL (3.50-5.50); RDW-CV 14.8 % (11.9-14.6); WBC 7.5 K/uL (4.0-11.0)
[2017-03-21 20:56] LABS: INR - (THERAPEUTIC) 0.96 (0.92-1.07); PROTIME 10.1 SECONDS (9.8-11.4); PTT 24 SECONDS (25-32)
[2017-03-21 20:59] LABS: ALBUMIN 3.3 gm/dL (3.5-5.0); ANION GAP 13.9 (10.0-19.0); BLOOD UREA NITROGEN 23 mg/dL (6-24); CALCIUM 8.8 mg/dL (8.5-10.5); CHLORIDE 109 mMol/L (96-110); CO2 22 mMol/L (22-32); CREATININE 0.9 mg/dL (0.5-1.1); ESTIMATED GFR (MDRD EQUATION) > 60; PHOSPHORUS 3.6 mg/dL (2.5-4.9); POTASSIUM 3.9 mMol/L (3.7-5.1); SODIUM 141 mMol/L (135-145)
--- NOTE | 2017-03-22 04:15 | NUR ---
Patient alert and oriented x3, very pleasant and cooperative, immobilizer in place to right leg, csm within normal limits pulse is slightly difficult to find on the the right foot, doan cath in place draining clear yellow, VSS, pain has been under control, has rested well NPO at midnight, to have surgery today, both patient and daughter RN's
--- NOTE | 2017-03-22 08:57 | NUR ---
CONSULT RECEIVED D/T FX HIP. APPETITE GOOD. PT NOT AT RISK. WILL ASSIST NEEDED.
--- NOTE | 2017-03-22 10:15 | NUR ---
Introduced self/role to patient and her daughter and son. Plan is for patient to go home with her daughter Analisa. Patient house is being remodeled right now and daughters home is better accessible and she is a nurse. Denied any barriers or DME needs. They wondered when surgery would be. Confirmed with Charge Nurse it was set for 1700, let patient and family know this. Added my name to her marker board.
--- NOTE | 2017-03-22 10:23 | NUR ---
[facility] Center note: 1000 Met with patient and family at bedside, patient is very pleasant, and states her last A1C was 6 % in the clinic, about a month ago. Patient is on Metformin 850 mg, BID at home. Currently patient is NPO for surgery today schedule at 5 p.m. and is on sliding scale, Novolog insulin. Provided a Diabetes Management Booklet and Survival skills checklist and asked family to assist patient in complete this form and CDE will check later this after, prior to surgery to assess education needs related to Diabetes Self Management
--- NOTE | 2017-03-22 14:01 | NUR ---
Diabetes center note: 1400 Patient and family completed the Diabetes Survival Skills Assessment form and no gaps are identified at this time. It was noted that patient stated that her glucometer at home is "broken" so we will plan to provide a new meter prior to dismissal. Patient is on the phone at the time CDE stops in room, no family present Will continue education post surgery 03/23/17
--- NOTE | 2017-03-22 15:04 | NUR ---
Pt has been alert and oriented. NPO all shift except sips when took Gilbert. Last Gilbert 2 tabs was at 1100 for Rt lower femur pain rated at 5 and states had good relief. Pt CSM WNL Rt lower extremity. Immobilizer on Rt leg. Pt has doan with 550 out. IV D5NS with 840 in. Last BS at 1100 was 159. No sliding scale insulin given. pt uses IS and gets to 1500. Pt also c/o pain left knee since fall. Pt had hibiclens bath and prep wipes to Rt anterior leg. Pt left for OR at 1430 per bed. Daughter and son with patient.
[2017-03-23 03:15] LABS: HEMATOCRIT 23.3 % (33.0-46.0); MCV 95.9 fl (83.0-98.0); MPV 9.5 fl (9.4-12.4); RBC 2.43 M/uL (3.50-5.50); RDW-CV 14.5 % (11.9-14.6)
[2017-03-23 03:18] LABS: HEMOGLOBIN 7.6 g/dL (10.0-15.0); MCH 31.3 pg (27.0-34.0); MCHC 32.6 gm/dL (32.0-36.5); PLATELET COUNT 134 K/uL (150-450)
[2017-03-23 04:24] LABS: ABSOLUTE NEUTROPHIL CT (ANC) 7.4 K/uL (1.8-7.8); BANDED NEUTROPHIL # 0.2 K/uL (0.0-0.1); BANDED NEUTROPHILS % 2 %; LYMPHOCYTE # 0.4 K/uL (0.8-4.0); LYMPHOCYTE % 5 %; MONOCYTE # 0.2 K/uL (0.0-1.0); SEGMENTED NEUTROPHIL # 7.3 K/uL (1.8-7.8); SEGMENTED NEUTROPHIL % 91 %
--- NOTE | 2017-03-23 05:15 | NUR ---
Patient is alert and oriented x3, has drew wrap in place to right leg with immobilizer in place, patient has had pain issues tonight and c/o chest pain at aroung 0245, seen by - EKG and cardiac enzymes abnormal, to have EKG done again at 0700, cardiac enzymes at 0700 and 1100, echo to be done this am, to call MD with any c/o of chest pain, new med orders including PRN IV lopressor, csm with in normal limits at 0500, daughter at bedside
--- NOTE | 2017-03-23 08:27 | NUR ---
Spoke to Talisha at [facility] P#[phone]. Faxed referral #[phone]. Face to face place on chart, flagged for doctor. Also put [facility] info on the chart.
--- NOTE | 2017-03-23 08:57 | NUR ---
Pt had ORIF distal Rt femur yesterday Per Dr Butler. Pt transferring to PCU per Dr Lyles order. Pt Troponin elevated from last check and abnormal Echocardiogram this morning. Pt had chest pain around 0245 last noc and Tele started, EkG and cardiac enzymes. Pt denies chest pain today, denies SOB. Has pain Rt leg when moves. Percocet PO at 0845 along with ASA 325 and lipitor 80 Mg. Made NPO. BS 210 and 2 units novolog given. Pt Last VS were 102/55 80 HR, 16 R, 98% on R/A and 98.1 T. Pt CSM Rt leg WNL. Vik wrap dry and intact. Ice to knee. Immobilizer on Rt leg. Valdez catheter patent clear yellow uring. Pt has IV left posterior forearm. Pt has history of cardiac ablation 2 yr ago at [facility] and records requested. Report to Tiana on PCU.
[2017-03-23 09:03] LABS: BASOPHIL % 0.3 %; EOSINOPHIL % 0.2 %; HEMATOCRIT 22.8 % (33.0-46.0); IMMATURE GRANULOCYTE % 0.3 %; LYMPHOCYTE # 0.8 K/uL (0.8-4.0); LYMPHOCYTE % 12.9 %; MCH 30.8 pg (27.0-34.0); MCV 96.2 fl (83.0-98.0); MONOCYTE # 0.5 K/uL (0.0-1.0); MONOCYTE % 7.2 %; MPV 9.4 fl (9.4-12.4); NEUTROPHIL # (ANC) 5.2 K/uL (1.8-7.8); NEUTROPHIL % 79.1 %; NRBC % 0 /100WBC (0-0.00); PLATELET COUNT 128 K/uL (150-450); RBC 2.37 M/uL (3.50-5.50); RDW-CV 14.5 % (11.9-14.6); WBC 6.5 K/uL (4.0-11.0)
[2017-03-23 09:06] LABS: HEMOGLOBIN 7.3 g/dL (10.0-15.0)
[2017-03-23 09:14] LABS: INR - (THERAPEUTIC) 0.95 (0.92-1.07)
[2017-03-23 09:21] LABS: BLOOD UREA NITROGEN 9 mg/dL (6-24); CALCIUM 8.7 mg/dL (8.5-10.5); CHLORIDE 109 mMol/L (96-110); CO2 24 mMol/L (22-32); CREATININE 0.6 mg/dL (0.5-1.1); ESTIMATED GFR (MDRD EQUATION) > 60; MAGNESIUM 1.8 mg/dL (1.8-2.6); SODIUM 142 mMol/L (135-145)
--- NOTE | 2017-03-23 10:28 | NUR ---
Received orders to begin Physical Therapy. Pt was transferred to PCU this morning secondary to cardiac event. Pt is on hold for AM evaluation until condition stabilizes. Will attempt to evaluate this afternoon. Kathy Khan, PT 03/23/17
--- NOTE | 2017-03-23 12:39 | NUR ---
Stopped up on 3N to check on Laura, nursing tells me that she was transfered to PCU for chest pain. Reviewed her chart, also place a fax cover sheet on it as well as a note to make sure the dismissal orders were faxed to [facility] upon dismissal. Asked that staff also phone C when she leaves as well so they know when she dismissed from our facility. No other CM needs identified. Plan is home with her daughter upon dismissal. CM to continue to follow and assist.
--- NOTE | 2017-03-23 13:45 | NUR ---
Attempted to evaluate patient for physical therapy this afternoon. Per nursing, asked to hold off OT/PT treatment until tomorrow when pt condition more stable. Pt will be undergoing CABG on Sunday03/26/17. Will continue to follow. Kathy Khan, PT 03/23/17
--- NOTE | 2017-03-23 14:20 | NUR ---
Diabetes center note: 1330 Patient was sleeping at the time CDE stops into room, there was not family present. CDE left a new blood glucose meter (in a sack) for patient to take home, at patients bedside as she stated on 03/22/17 that her meter at home was "broke".
--- NOTE | 2017-03-23 14:25 | NUR ---
Occupational Therapy Note: OT attempted to complete pt OT eval however pt was undergoing a heart cath in the a.m. and RN requested to hold in the p.m. Per RN, pt is to undergo a CABG Sunday. OT will check back tomorrow as appropriate. Thank you, Alisa Saucedo, OTR/L
--- NOTE | 2017-03-23 15:56 | NUR ---
Significant Event: PT A&O x3, forgetful. VSS, on 1L O2 per nasal cannula. Dressing intact to R)leg, immobilizer on at all times. TTWB to R)leg. R)radial heart cath, dressing intact. L)FA IV patent. PT repositioned side to side in bed. Valdez patent. Heparin running at 840 units/hr, next PTTHP at 1900 with cardiac enzymes. PT tolerating diet. Pain well controlled with percocet. Family at bedside. Follow up: Patient is scheduled for a CABG on Sunday
--- NOTE | 2017-03-24 01:20 | NUR ---
03/23/17 2340 CALL FROM TELE REPORTS 5 BEATS OF VTACH. PATIENT IS SLEEPING. WHEN WOKEN, PATIENT DENIES CHEST PAIN OR SOA. VSS. WILL CONTINUE TO MONITOR. DAUGHTER AT BEDSIDE.
[2017-03-24 01:56] LABS: BASOPHIL % 0.4 %; EOSINOPHIL % 0.4 %; HEMATOCRIT 23.8 % (33.0-46.0); IMMATURE GRANULOCYTE % 0.3 %; LYMPHOCYTE % 13.1 %; MCH 30.7 pg (27.0-34.0); MCHC 33.2 gm/dL (32.0-36.5); MCV 92.6 fl (83.0-98.0); MONOCYTE # 0.5 K/uL (0.0-1.0); MONOCYTE % 7.5 %; MPV 9.6 fl (9.4-12.4); NEUTROPHIL # (ANC) 5.7 K/uL (1.8-7.8); NEUTROPHIL % 78.3 %; NRBC % 0 /100WBC (0-0.00); PLATELET COUNT 137 K/uL (150-450); RBC 2.57 M/uL (3.50-5.50); RDW-CV 15.4 % (11.9-14.6); WBC 7.2 K/uL (4.0-11.0)
[2017-03-24 01:57] LABS: HEMOGLOBIN 7.9 g/dL (10.0-15.0)
[2017-03-24 02:12] LABS: MAGNESIUM 1.7 mg/dL (1.8-2.6); PHOSPHORUS 3.1 mg/dL (2.5-4.9)
[2017-03-24 02:18] LABS: ANION GAP 12.1 (10.0-19.0); BLOOD UREA NITROGEN 13 mg/dL (6-24); CALCIUM 8.3 mg/dL (8.5-10.5); CHLORIDE 108 mMol/L (96-110); CO2 23 mMol/L (22-32); CREATININE 0.6 mg/dL (0.5-1.1); ESTIMATED GFR (MDRD EQUATION) > 60; POTASSIUM 4.1 mMol/L (3.7-5.1); SODIUM 139 mMol/L (135-145)
--- NOTE | 2017-03-24 05:20 | NUR ---
Significant Event: PATIENT IS ALERTA ND ORIENTED. VSS. HEPARIN DRIP. PATIENT NEEDS CABG ON SUNDAY. DAUGHTER AT BEDSIDE. RECEIVED 1U PRBC FOR HBG OF 7.3. TTWB TO RIGHT. KNEE IMMOBILIZER AT ALL TIMES. ACHS. Follow up:
--- NOTE | 2017-03-24 19:36 | NUR ---
Patient recieved pain medication once this am (0800) and once this pm (1730). She received a unit of PRBC followed by lasix. Lab order for an H&H was put in. Patient is on a Heparin gtt (non-therapeutic)-next draw at 2205. 2g of Mag was givent today. Patient is still on q4hr accheck. Right leg was rewrapped by ortho today (no S&S of infection). Patient was assisted out of bed to chair by PT.
[2017-03-25 03:53] LABS: BASOPHIL % 0.4 %; EOSINOPHIL # 0.1 K/uL (0.0-0.5); EOSINOPHIL % 0.6 %; HEMATOCRIT 22.7 % (33.0-46.0); IMMATURE GRANULOCYTE % 0.5 %; LYMPHOCYTE # 1.7 K/uL (0.8-4.0); LYMPHOCYTE % 20.9 %; MONOCYTE # 0.6 K/uL (0.0-1.0); MONOCYTE % 7.8 %; MPV 9.7 fl (9.4-12.4); NEUTROPHIL # (ANC) 5.5 K/uL (1.8-7.8); NEUTROPHIL % 69.8 %; NRBC % 0 /100WBC (0-0.00); RBC 2.65 M/uL (3.50-5.50); WBC 7.9 K/uL (4.0-11.0)
[2017-03-25 03:54] LABS: HEMOGLOBIN 7.7 g/dL (10.0-15.0); MCH 29.1 pg (27.0-34.0); MCHC 33.9 gm/dL (32.0-36.5); MCV 85.7 fl (83.0-98.0); PLATELET COUNT 165 K/uL (150-450); RDW-CV 19.8 % (11.9-14.6)
[2017-03-25 04:09] LABS: ANION GAP 11.4 (10.0-19.0); BLOOD UREA NITROGEN 16 mg/dL (6-24); CALCIUM 8.4 mg/dL (8.5-10.5); CHLORIDE 103 mMol/L (96-110); CO2 24 mMol/L (22-32); CREATININE 0.7 mg/dL (0.5-1.1); ESTIMATED GFR (MDRD EQUATION) > 60; MAGNESIUM 1.9 mg/dL (1.8-2.6); PHOSPHORUS 2.1 mg/dL (2.5-4.9); POTASSIUM 3.4 mMol/L (3.7-5.1); SODIUM 135 mMol/L (135-145)
--- NOTE | 2017-03-25 05:38 | NUR ---
Significant Event: Follow up:PATIENT A/OX3, MOVES UPPER EXT X2, ON HEPARIN DRIP PTT WITHIN RANGE X2, BOO, GOOD OUTPUT
[2017-03-25 11:47] LABS: BICARBONATE 23.6 mmol/L (18.0-23.0); PCO2 34 mmHg (35-45); PO2 90 mmHg (80-90)
--- NOTE | 2017-03-25 19:34 | NUR ---
Significant Event: Patient up to chair with heavy 2 assist to pivot. 1 tab percocet given X2 in the morning, has not wanted anything more for pain. VSS. Right leg CSM intact. AC HS accuchecks, did treat two of three with insulin, mild SS. Appetite much improved today. IV Potassium Phosphate given X1. Heparin currently running 1400 units/hr, next ppthp due at 2330. Plan is NPO at midnight. Permits for CABG signed, does need preop checklist completed. Did teaching on sternal precautions with heart hugger, pain, IS, cardiac rehab, and answered family questions. Patient is full code, daughter Analisa to make medical decisions if patient unable to. 5 Wishes handbook given for patient and family to review. Lots of visitors, patient in good spirits. Follow up:
[2017-03-26 05:19] LABS: BASOPHIL % 0.3 %; EOSINOPHIL # 0.1 K/uL (0.0-0.5); EOSINOPHIL % 1.5 %; HEMATOCRIT 18.4 % (33.0-46.0); IMMATURE GRANULOCYTE % 0.5 %; LYMPHOCYTE # 1.3 K/uL (0.8-4.0); LYMPHOCYTE % 22.1 %; MCH 29.4 pg (27.0-34.0); MCHC 34.2 gm/dL (32.0-36.5); MONOCYTE # 0.4 K/uL (0.0-1.0); MONOCYTE % 6.8 %; MPV 10.3 fl (9.4-12.4); NEUTROPHIL # (ANC) 4.2 K/uL (1.8-7.8); NEUTROPHIL % 68.8 %; NRBC % 0 /100WBC (0-0.00); PLATELET COUNT 165 K/uL (150-450); RBC 2.14 M/uL (3.50-5.50); RDW-CV 19.4 % (11.9-14.6); WBC 6.1 K/uL (4.0-11.0)
[2017-03-26 05:24] LABS: HEMOGLOBIN 6.3 g/dL (10.0-15.0)
[2017-03-26 05:36] LABS: ANION GAP 13.8 (10.0-19.0); BLOOD UREA NITROGEN 21 mg/dL (6-24); CALCIUM 8.2 mg/dL (8.5-10.5); CHLORIDE 104 mMol/L (96-110); CO2 21 mMol/L (22-32); CREATININE 0.7 mg/dL (0.5-1.1); ESTIMATED GFR (MDRD EQUATION) > 60; POTASSIUM 3.8 mMol/L (3.7-5.1); SODIUM 135 mMol/L (135-145)
--- NOTE | 2017-03-26 10:43 | NUR ---
A-SCREENED D/T LOS S/P HIP REPAIR ON 03/22. TO OR TODAY FOR CABG HT: 59 IN. ADMIT WT (BED SCALE): 70.1 KG; CURRENT WT (BED SCALE): 80.4 KG ? 10.3 KG WT GAIN X 3 DAYS. WILL USE ADMIT WT FOR NUTR. NEEDS CALCULATIONS. BMI: 31.1 LABS: NA 135, K+ 3.8, GLU 201, BUN 21, TUMBLER MACHINE OPERATOR 0.7, ALB 3.3 MEDS: MIRALAX, SENOKOT, COLACE, FEOSOL, LIPITOR, NOVOLOG (MILD SS), SUBLIMAZE, Z-GEN, MVI, PRN BOWEL MEDS, MORPHINE DIET RX: NPO. PRIOR TO NPO STATUS FOR SURGERY, PO INTAKE HAS BEEN 25-100% SINCE ADMIT, WITH AVG BEING 68%. EST NUTR NEEDS: 2514-0015 KCALS (20-25 KCALS/KG) 86-108 GM PROTEIN (2.0-2.5 GM/KG IBW) FLUID PER MD POST OP D-AT NUTRITION RISK W/INCREASED NUTRIENT NEEDS R/T HEALING AEB RECENT HIP FX, AND UPCOMING CABG. I-NONE AT THIS TIME D/T NPO STATUS M/E-GOAL: START APPROPRIATE DIET RX WHEN MEDICALLY INDICATED POST-OP 1)F/U DIET RX AND POC IN 2-3 DAYS 2)ASSIST NEEDED
--- NOTE | 2017-03-26 17:26 | NUR ---
Significant Event: PT UP CHAIR THIS AM 2 HEAVY WITH THERAPY, PT DOES FEW MINISTEPS, PT IS TOE TOUCH ON R)LEG AND LEFT KNEE IS SORE AND CANT PUT ALOT WT ON IT EITHER. HEPARIN DRIP AT 1500UNITS, NEXT PTTHP AT 1800. SURGERY CANCELLED, PT WILL BE 1ST CASE IN AM, SO PREOP CABG TO DO. HEPARIN OFF AT 0400 NPO AT 2200 TONIGHT, BICARB TO START AT 0000. HGB WAS 6.3 THIS AM, 2 UNITS GIVEN, BUMEX IV AFTER. K+40MEQ PO TODAY WAS 3.8. MANY FAMILY HERE WITH PT TODAY. PERCOCET THIS AM. Follow up:
[2017-03-26 17:48] LABS: HEMOGLOBIN 8.6 g/dL (10.0-15.0)
[2017-03-27 05:24] LABS: ANION GAP 11.1 (10.0-19.0); BLOOD UREA NITROGEN 19 mg/dL (6-24); CALCIUM 8.9 mg/dL (8.5-10.5); CHLORIDE 106 mMol/L (96-110); CO2 24 mMol/L (22-32); CREATININE 0.7 mg/dL (0.5-1.1); ESTIMATED GFR (MDRD EQUATION) > 60; PHOSPHORUS 2.4 mg/dL (2.5-4.9); POTASSIUM 4.1 mMol/L (3.7-5.1); SODIUM 137 mMol/L (135-145)
[2017-03-27 05:26] LABS: ALBUMIN 1.9 gm/dL (3.5-5.0)
--- NOTE | 2017-03-27 06:02 | NUR ---
Significant Event: A&Ox3, VSS on room air. Heparin gtt running at 1600units shut off at 0400 per preop order. NS at 75ml/hr. Surgical CHG bath and CHG wipes completed. Right leg immobilizer and drew wrap C/D/I. Percocet given at HS for pain. Repositioned Q2hrs. Family helps with cares. NPO at 2200. ACHS accuchecks mild SSI. Pleasant and cooperative. Follow up: 1st case CABG today 03/27
[2017-03-27 11:55] LABS: HEMATOCRIT 25.4 % (33.0-46.0); MCHC 33.9 gm/dL (32.0-36.5); MCV 89.1 fl (83.0-98.0); MPV 9.7 fl (9.4-12.4); WBC 11.9 K/uL (4.0-11.0)
[2017-03-27 11:57] LABS: MCH 30.2 pg (27.0-34.0); RBC 2.85 M/uL (3.50-5.50); RDW-CV 16.1 % (11.9-14.6)
[2017-03-27 11:58] LABS: HEMOGLOBIN 8.6 g/dL (10.0-15.0); PLATELET COUNT 131 K/uL (150-450)
[2017-03-27 12:05] LABS: INR - (THERAPEUTIC) 1.12 (0.92-1.07); PROTIME 11.8 SECONDS (9.8-11.4)
[2017-03-27 12:06] LABS: PTT 31 SECONDS (25-32)
[2017-03-27 13:05] LABS: CLOTTING TIME 165 seconds
[2017-03-27 13:06] LABS: ALPHA ANGLE 76 degrees; ALPHA ANGLE 76 degrees (70-81); CLOT FORMATION TIME 68 seconds; MAXIMUM CLOT FIRMNESS 63 mm; MAXIMUM LYSIS 0 %
[2017-03-27 13:07] LABS: CLOTTING TIME 37 seconds (43-82); MAXIMUM CLOT FIRMNESS 64 mm (51-72)
[2017-03-27 13:08] LABS: BICARBONATE 24.3 mmol/L (18.0-23.0); PCO2 45 mmHg (35-45); PO2 405 mmHg (80-90)
[2017-03-27 13:09] LABS: SODIUM 135 mEq/L (135-145)
[2017-03-27 13:09] LABS: BICARBONATE 24.8 mmol/L (18.0-23.0); PCO2 54 mmHg (35-45); PO2 415 mmHg (80-90)
[2017-03-27 13:10] LABS: SODIUM 133 mEq/L (135-145)
[2017-03-27 13:11] LABS: BICARBONATE 27.1 mmol/L (18.0-23.0); PCO2 59 mmHg (35-45); PO2 305 mmHg (80-90); POTASSIUM 4.4 mEq/L (3.7-5.1); SODIUM 136 mEq/L (135-145)
[2017-03-27 13:12] LABS: BICARBONATE 24.3 mmol/L (18.0-23.0); PCO2 51 mmHg (35-45); PO2 297 mmHg (80-90)
[2017-03-27 13:13] LABS: BICARBONATE 24.4 mmol/L (18.0-23.0); PCO2 49 mmHg (35-45); PO2 247 mmHg (80-90)
[2017-03-27 13:13] LABS: BICARBONATE 23.2 mmol/L (18.0-23.0); PCO2 44 mmHg (35-45)
[2017-03-27 13:13] LABS: POTASSIUM 4.4 mEq/L (3.7-5.1); SODIUM 137 mEq/L (135-145)
[2017-03-27 13:14] LABS: PCO2 44 mmHg (35-45)
[2017-03-27 13:14] LABS: PO2 121 mmHg (80-90)
[2017-03-27 13:14] LABS: POTASSIUM 4.4 mEq/L (3.7-5.1); SODIUM 136 mEq/L (135-145)
[2017-03-27 13:15] LABS: BICARBONATE 21.6 mmol/L (18.0-23.0); PO2 186 mmHg (80-90); POTASSIUM 4.4 mEq/L (3.7-5.1); SODIUM 135 mEq/L (135-145)
[2017-03-27 13:29] LABS: ANION GAP 11.6 (10.0-19.0); BLOOD UREA NITROGEN 16 mg/dL (6-24); CALCIUM 9.3 mg/dL (8.5-10.5); CHLORIDE 111 mMol/L (96-110); CO2 23 mMol/L (22-32); CREATININE 0.6 mg/dL (0.5-1.1); ESTIMATED GFR (MDRD EQUATION) > 60; POTASSIUM 4.6 mMol/L (3.7-5.1); SODIUM 141 mMol/L (135-145)
[2017-03-27 15:31] LABS: HEMATOCRIT 26.6 % (33.0-46.0); HEMOGLOBIN 9.3 g/dL (10.0-15.0)
--- NOTE | 2017-03-27 17:48 | NUR ---
Significant Event: Patient has been slow to wake up post op. She follows all commands, but is groggy and drifts back to sleep shortly. The plan is still to hopefully exutubate her in the short future as she wakes up more. She tolerates SIMV and overbreaths the set rate. Cardiac index has ran 1.6-1.8 for most of the day. 5% Albumin was given X2 and 1 unit PRBC's. CVP is 8-10. It is okay to keep CI 1.8 or greater now. Fentanyl was given twice throughout the day to try and help patient with breathing to get off the ventilator. Chest tube output has been appropriate. The last Hgb was 9.3. Follow up: Extubate
--- NOTE | 2017-03-27 18:14 | NUR ---
D: CABG I: VENT, MDI R: PT ARRIVED IN ICU AROUND 12:44, VENT SETTINGS SIMV 8, VT 400, P5, PS 10, WEANED FIO2 TO 40%, PT IS WAKING UP A LITTLE MORE TOWARDS END OF SHIFT, RR IS HIGH 30'S TO LOW 40'S, ALB INHALER WILL BE NEW FOR NOC SHIFT, PT IS JUST NOT WAKING UP ENOUGH FOR CPAP TRIALS YET P: CONT.
[2017-03-27 20:03] LABS: POTASSIUM 4.2 mMol/L (3.7-5.1)
[2017-03-27 20:04] LABS: MAGNESIUM 2.7 mg/dL (1.8-2.6)
--- NOTE | 2017-03-27 23:40 | NUR ---
Pt in SIMV mode to start shift, placed in CPAP 5/PS 10, 40% Fio2. Weaned PS to 5 as Pt tolerated. Pt followed commands, weaning parameters completed. NIF-28, RSBI 83, RR 25-35 tolerated well. Extubated around 1850 to 6L NC then decreased to 4L NC. Started post CABG protocol and breathing txs.
[2017-03-28 03:47] LABS: BICARBONATE 24.2 mmol/L (18.0-23.0); PCO2 40 mmHg (35-45)
[2017-03-28 03:48] LABS: PO2 83 mmHg (80-90)
[2017-03-28 03:55] LABS: ANION GAP 11.3 (10.0-19.0); BLOOD UREA NITROGEN 17 mg/dL (6-24); CALCIUM 9.1 mg/dL (8.5-10.5); CHLORIDE 110 mMol/L (96-110); CO2 22 mMol/L (22-32); CREATININE 0.6 mg/dL (0.5-1.1); ESTIMATED GFR (MDRD EQUATION) > 60; POTASSIUM 4.3 mMol/L (3.7-5.1); SODIUM 139 mMol/L (135-145)
[2017-03-28 04:05] LABS: HEMATOCRIT 29.7 % (33.0-46.0); HEMOGLOBIN 10.4 g/dL (10.0-15.0); MCH 30.3 pg (27.0-34.0); MCV 86.6 fl (83.0-98.0); RBC 3.43 M/uL (3.50-5.50); RDW-CV 16.2 % (11.9-14.6); WBC 10.6 K/uL (4.0-11.0)
--- NOTE | 2017-03-28 05:44 | NUR ---
Significant Event: PATIENT EXTUBATED AT 1850 TO 4L NASAL CANNULA. ALERT AND ORIENTED. FOLLOWS COMMANDS. CONTINUES ON IABP 1:2, 100% AUGMENTED, AUTO, EKG TRIGGER TO RIGHT GROIN. CONTINUES TO BE A/V PACED. CONTINUES ON DOBUTAMINE AND EPI GTTS. SWAN NOTED AT 50CM TO RIGHT IJ. CI 2.2-2.6 CO 3.9-4.8. AUG PRESSURES 110-130. TITRATED TO 1L PER NASAL CANNULA. CHEST TUBE X4. SEROSANG OUTPUT. BOO WITH ADEQUATE UOP. NO BM. RIGHT IJ. RIGHT RADIAL ARTLINE. PIV X3. Follow up:
--- NOTE | 2017-03-28 08:17 | NUR ---
ROUTINE CONSULT FOR DIET ED S/P CABG NOTED. WILL COMPLETE APPROPRIATE PRIOR TO DISMISSAL.
--- NOTE | 2017-03-28 11:45 | NUR ---
A - NUTRITION F/U. PT S/P CABG YESTERDAY, HIP REPAIR 03/22. GLU 80, BUN/CONCRETE BLOCK PLANT SUPERVISOR 17/0.6, ALB 1.9. PT W/ 1-3+ LE EDEMA. DIET CARDIAC W/ 2000 ML FR. EATING BITES. GOOD PO PRIOR TO OR. PT IS RECEPTIVE TO GLUCERNA BID. D - AT RISK W/ INADEQUATE INTAKE R/T DECREASED APPETITE S/P CABG AEB INTAKE RECORD AND PT/MIKE REPORT. I - GOAL: 50% INTAKE BY NEXT REVIEW. M/E - WILL SEND GLUCERNA BID W/ BF AND DINNER AND F/U IN 2-3 DAYS.
--- NOTE | 2017-03-28 11:55 | NUR ---
Introduced self and CM role to daughter who was at bedside. Let her know that I was going to follow for CM Margi since her mom had transferred to ICU. Daughter was fine with this. She tells me that the original plan was for her mom to return back to her house with her and have C services, but she now thinks that she would need a short skilled stay before returning home. Offered her [place] SNF or the [employer] [facility] as options to look into. Daughter tells me that her mom does not want to go to a SNF so we will have to go with the SWB option. I let her know that this was fine and I would be happy to look into the SWB option for her mom upon dismissal. No other questions, needs or concerns at this time. CM to continue to follow and assist. Will call/fax in referral to Loulou Jacobs at [facility] later today or tomorrow.
--- NOTE | 2017-03-28 16:10 | NUR ---
Significant Event: Patient is alert and oriented and follows all instructions for care. She has been weaned to room air. She participates with breathing treaments. Pain has been controlled with [place] 2tabs. Baloon pump was taken out at 1300. Epinephrine and Dobutamine gtts continue. We are to wean for CI>2.2, but have not been able to wean yet. Right arterial line D/C because it was not working well. We are going off cough pressures. The Femstop will be off at 1715 and patient is able to get up to the chair at 1900. Follow up: Wean drips
--- NOTE | 2017-03-28 23:57 | NUR ---
Significant Event: PT A/O, FOLLOWS COMMANDS, MUNOZ SPONTNANEOUSLY . CONTINUES ON EPI AND DOBUTAMINE GTTs. AFIB ON MONITOR. REMAINS ON RA. HYPOACTIVE BS, POOR APPETITE. NO NAUSEA, NO BM. ADEQUATE UOP. NO NEW SKIN ISSUES. DRESSING TO CHESTUBES SATURATED, REINFORCED WITH ABD AND MEDIPORE TAPE. CT OUTPUT S/S. Follow up: CONTINUE WEANING EPI/DOBUTAMINE. EFRAIN BOYD RN
[2017-03-29 04:01] LABS: ANION GAP 12.3 (10.0-19.0); BLOOD UREA NITROGEN 17 mg/dL (6-24); CALCIUM 9.2 mg/dL (8.5-10.5); CHLORIDE 103 mMol/L (96-110); CO2 23 mMol/L (22-32); CREATININE 0.6 mg/dL (0.5-1.1); ESTIMATED GFR (MDRD EQUATION) > 60; POTASSIUM 4.3 mMol/L (3.7-5.1); SODIUM 134 mMol/L (135-145)
[2017-03-29 04:12] LABS: HEMATOCRIT 29.5 % (33.0-46.0); MCH 29.9 pg (27.0-34.0); MCHC 33.9 gm/dL (32.0-36.5); MCV 88.1 fl (83.0-98.0); MPV 9.7 fl (9.4-12.4); RBC 3.35 M/uL (3.50-5.50); RDW-CV 16.4 % (11.9-14.6)
--- NOTE | 2017-03-29 06:05 | NUR ---
Significant Event: RESUMED CARES AT 2330. PT IS A/O X3. C/O CHEST SURGICAL PAIN WELL SOME CHRONIC BACK PAIN. EPI WEANED BACK TO 3MCG/MIN FOR CI>2.2. PT HAS HAD ORIF OF R)FEMUR WHICH HAS DRSG INTACT AND LEG IN IMMOBILIZER. MODERATE CHEST TUBE OUTPUT M-210, PL-390. DOBUTAMINE CONTINUES AT 3MCG/KG/MIN. AMIO GTT TURNED OFF AND PO DOSE INITIATED. 5 BEATS OF VTACH TONIGHT. 20 KCL REPLACED THIS AM. Follow up: WEAN EPI AND DOBUTAMINE.
--- NOTE | 2017-03-29 11:10 | NUR ---
0830 VM from daughter Analisa stating that her brother, Charis' son, was wanting his mom to go to inpatient facility for rehab when she was ready to dismiss but Laura was not wanting to do that so she was requesting a visit from me. 1020 Stopped in to talk with Laura, daughter Analisa and son Umer. Let them know that I had faxed in a referral to [facility] but hadn't heard back from Loulou Jacobs yet. Informed Laura that she had the right to pick where she wanted to go upon discharge and he son couldn't make her go to an inpatient rehab unit if she didn't want to go. Laura tells me that she wants to go to [facility] if they will accept her upon dismissal. If they wouldn't be able to accept then we would look into [facility] or [facility]. Told Laura and family that I would think she would be ready to go next week sometime and I would follow up with Loulou at [facility] today to make sure she got the referral and also keep sending her updates on Laura during her stay here. Laura and family are all in agreement with this plan. Let them know if they had any questions to call me and I would be happy to come back and meet with them. Denied any other questions, needs or concerns. I phoned over to [facility], talked with Loluou, she states she got the referral and she thinks that they will be able to accept when Laura is ready to go. Asks that I fax her an update on Sunday and then again on Sunday. Let her know that I would fax her updated both those days and then call her on Sunday and follow up with her as well. Loulou was fine with this. CM to continue to follow and assist. Plan [facility] when ready for dismissal.
--- NOTE | 2017-03-29 18:54 | NUR ---
Significant Event: Mediastinal chest tubes removed by Dr. Fragoso. [place]-Melissa catheter removed. Pleural chest tubes to EHSAN drain. Epi gtt at 2mcg/min, dobutamine gtt at 3mcg/kg/min/. Insulin gtt shut off. Adequate UOP. VSS on room air. Afebrile. No BM. PRN percocet for pain. Family at bedside. Follow up: Continue to monitor incision sites and chest tubes. Manage pain.
--- NOTE | 2017-03-30 04:12 | NUR ---
Significant Event: Neurologically intact. VSS. Epi off at 2150. 3+ edema to R) arm. RA. Clear and dim lung sounds. 2 pleural CTs drained 160 and 240 ml serosang drainage. Hypoactive bowel sounds. No BM. Valdez drained 1105 ml urine. Dobutamine at 3 mcg/kg/min. C/O R) leg pain. Percocet 2 tabs given x2. Follow up: Change status
[2017-03-30 04:57] LABS: ANION GAP 11.8 (10.0-19.0); CALCIUM 8.9 mg/dL (8.5-10.5); CREATININE 0.5 mg/dL (0.5-1.1); POTASSIUM 4.8 mMol/L (3.7-5.1)
[2017-03-30 05:13] LABS: HEMATOCRIT 29.4 % (33.0-46.0); HEMOGLOBIN 10.1 g/dL (10.0-15.0); MCH 30.1 pg (27.0-34.0); MCHC 34.4 gm/dL (32.0-36.5); MCV 87.8 fl (83.0-98.0); MPV 9.7 fl (9.4-12.4); RBC 3.35 M/uL (3.50-5.50); RDW-CV 15.9 % (11.9-14.6); WBC 10.2 K/uL (4.0-11.0)
--- NOTE | 2017-03-30 10:29 | NUR ---
A - NUTRITION F/U. NA+ 132, GLU 118, BUN/BOLT LABELER 19/0.5. PT W/ 2-3+ EDEMA TO LUE, 1+ BLE. DIET: CARDIAC W/ 2000 ML FR. INTAKE 25%. OFFERED GLUCERNA BID. D - AT RISK W/ INADEQUATE ORAL INTAKE R/T DECREASED APPETITE S/P CABG AEB INTAKE RECORD. I - GOAL: 50% INTAKE BY NEXT REVIEW. M/E - HOPEFULLY INTAKE WILL IMPROVE OVER WEEKEND. CONT TO ENCOURAGE PO AND WILL F/U IN 2-4 DAYS.
--- NOTE | 2017-03-30 18:27 | NUR ---
Significant Event: a/o x 3. pain to right lower extremity. PRN percocet for pain management. TTWB to right lower extremity. mepilex dsg to right lower extremity with cast padding and drew wrap changed this am. immobilizer on right lower extremity. three sites to left lower extremity where veins were taken for CABG with sutures- open to air. two drains to chest with 120ml out of #1 and 130ml out of #2. NSR. Room air. doan cath. IV to right forearm saline locked. Right IJ with Dobutamine drip at 2mcg/kg/minutes. orders to wean off drip for map greater than or equal to 70. full lift with transfers. PCU status. daughter at bedside assists with ADLs and will let nurse know what to order for meals. accuchecks ac/hs with carb count and sliding scale.
--- NOTE | 2017-03-31 04:33 | NUR ---
Significant Event: Neuro intact. VSS. Dobutamine at 2 mcg/kg/min. RA. XL BM. Good UOP from doan. 75 and 50 ml serosang drainage from CTs. Nothing out of wound vac. Percocet 1 tab given x1 for R) leg pain, with relief. Transferred via bed to room 6307 at 0410. Gave report to Yanet MCKAY at bedside. Follow up: Continue
--- NOTE | 2017-03-31 14:38 | NUR ---
Significant Event:Patient up in chair. Had large bm. Eating poor. ADA diet. Accucheck coverage ACHS and Carb ct. Right jugular IV SL. Dobutamine stopped as bp > 70 at 1315. Albumin given. Needs 3 mores doses. Family at bedside. Sternal incision intact with abd drsg saturated and changed x1. Valdez patent clear yellow urine. Slight generalized edema. [place] sites to legs intact with sutures. Right leg brace intact. CSM adequate.
--- NOTE | 2017-03-31 17:36 | NUR ---
Significant Event: A/O X 3. NO C/O PAIN. RETURNED TO BED VIA MECHANICAL LIFT. RT. LEG WITH INTACT BRACE. J/P DRAINS X 2. HAS #3 DRAIN, ATTACHED TO BEDSIDE BOX. DAUGHTER AT BEDSIDE AND HELPFUL WITH CARES. Follow up: CONT. TO MONITER CARDIAC AND ORTHO STATUS.
--- NOTE | 2017-04-01 04:30 | NUR ---
Patient A/Ox3. VSS on RA. Lift uses to transfer patient. Lungs clear/diminished. Bowel sounds present. RT IJ leaks when flushed, possible removal today?? IV to Rt forearm saline locked. Wound vac to sternal incision. EHSAN drains to chest JP1 60ml out, JP2 50ml out. Dressing to drain site CDI. Pacer wires still intact. Valdez 600out. [place] site to Lt leg open to air, sutured. Rt leg drew wrapped and brace, non weight bearing. Percocet x2 for sternal pain with relief. Recieved two bottles of albumin. Daughter at bedside.
[2017-04-01 04:55] LABS: BASOPHIL # 0.1 K/uL (0.0-0.2); BASOPHIL % 0.6 %; EOSINOPHIL # 0.1 K/uL (0.0-0.5); EOSINOPHIL % 1.7 %; HEMOGLOBIN 9.6 g/dL (10.0-15.0); IMMATURE GRANULOCYTE # 0.1 K/uL (0.0-0.3); IMMATURE GRANULOCYTE % 1.7 %; LYMPHOCYTE # 1.7 K/uL (0.8-4.0); LYMPHOCYTE % 21.1 %; MCH 29.7 pg (27.0-34.0); MCHC 33.1 gm/dL (32.0-36.5); MCV 89.8 fl (83.0-98.0); MONOCYTE # 0.5 K/uL (0.0-1.0); MONOCYTE % 6.4 %; MPV 9.5 fl (9.4-12.4); NEUTROPHIL # (ANC) 5.6 K/uL (1.8-7.8); NEUTROPHIL % 68.5 %; NRBC % 0 /100WBC (0-0.00); PLATELET COUNT 156 K/uL (150-450); RBC 3.23 M/uL (3.50-5.50); RDW-CV 16.4 % (11.9-14.6); WBC 8.2 K/uL (4.0-11.0)
[2017-04-01 05:11] LABS: ALBUMIN 2.8 gm/dL (3.5-5.0); CALCIUM 8.8 mg/dL (8.5-10.5); CREATININE 0.7 mg/dL (0.5-1.1); TOTAL BILIRUBIN 1.1 mg/dL (0.0-1.5); TOTAL PROTEIN 5.6 g/dL (6.0-8.4)
--- NOTE | 2017-04-01 17:20 | NUR ---
Significant Event: A/O X3. DOZES OFF EASILY. PERCOCET FOR PAIN CONTROL WITH RELIEF, THEN TYLENOL THIS AFTERNOON. J/P X2 DRAINS REMOVED. WOUND VAC REMOVED. PACER WIRES REMOVED. RT. NECK CENTRAL LINE REMOVED. Follow up: CONT. TO MONITER CARDIAC STATUS AND ORTHO STATUS.
[2017-04-02 04:25] LABS: BASOPHIL # 0.1 K/uL (0.0-0.2); BASOPHIL % 0.8 %; EOSINOPHIL # 0.2 K/uL (0.0-0.5); EOSINOPHIL % 2.1 %; HEMOGLOBIN 9.9 g/dL (10.0-15.0); IMMATURE GRANULOCYTE # 0.3 K/uL (0.0-0.3); IMMATURE GRANULOCYTE % 2.9 %; LYMPHOCYTE # 1.4 K/uL (0.8-4.0); LYMPHOCYTE % 16.4 %; MCH 29.9 pg (27.0-34.0); MCV 90.6 fl (83.0-98.0); MONOCYTE # 0.6 K/uL (0.0-1.0); MONOCYTE % 6.7 %; MPV 9.4 fl (9.4-12.4); NEUTROPHIL # (ANC) 6.2 K/uL (1.8-7.8); NEUTROPHIL % 71.1 %; NRBC % 0 /100WBC (0-0.00); PLATELET COUNT 176 K/uL (150-450); RBC 3.31 M/uL (3.50-5.50); RDW-CV 16.9 % (11.9-14.6); WBC 8.7 K/uL (4.0-11.0)
--- NOTE | 2017-04-02 04:27 | NUR ---
Patient A/Ox3. VSS on RA. Lift, was up in chair last night for a few hours. Lungs clear/diminished. Bowel sounds present, 1BM this shift. IV to Rt forearm saline locked. Sternum stapled open to air. CT sites cover, mod drainage. [place] site Lt leg sutured open to air. RT leg drew wraps and leg immobilizer on, CDI. Percocet x2 last at 0300 for leg pain. [facility] swing bed on dismissal. AC/HS accu checks.
[2017-04-02 04:38] LABS: ALBUMIN 2.8 gm/dL (3.5-5.0); ANION GAP 12.8 (10.0-19.0); CALCIUM 8.9 mg/dL (8.5-10.5); CREATININE 0.7 mg/dL (0.5-1.1); PHOSPHORUS 3.3 mg/dL (2.5-4.9); POTASSIUM 4.8 mMol/L (3.7-5.1)
--- NOTE | 2017-04-02 13:27 | NUR ---
1145 Talked with WOODY Joseph who tells me that she has heard from doctors and if [facility] could take Laura today, she would be ready to go to them for [facility]. I called/faxed update into Loulou Jacobs at [facility]. She says they could take today if approved Laura to come to them. Let her know to call me with acceptance and I would go forward with setting up RN to RN, MD to MD and ambulance information at that time. Packet started, orders printed, ambulance cert form on the chart. Updated Laura and her daughter to all the above, they are in agreement with this plan. Let them know I would come back and talk with them once I heard back from Loulou at [facility]. 1315 Call to Loulou to see if had looked at the paperwork yet or where we were at on getting Laura to them today. Alesia tells me that she has given it to , but he hasn't gotten back to her yet. States she will call me once she knows more. CM to continue to follow and assist.
--- NOTE | 2017-04-02 17:23 | NUR ---
PATIENT HAS BEEN UP IN CHAIR X1 TODAY FOR A TOTAL OF 3 .5 HOURS, SHE TOLERATED WELL BUT MADE HER VERY TIRED. SHE HAS HAD PAIN PILLS X1 TODAY.
[2017-04-03 03:44] LABS: HEMATOCRIT 29.6 % (33.0-46.0); HEMOGLOBIN 9.9 g/dL (10.0-15.0)
[2017-04-03 04:08] LABS: ANION GAP 14.5 (10.0-19.0); CALCIUM 8.6 mg/dL (8.5-10.5); CREATININE 0.8 mg/dL (0.5-1.1); POTASSIUM 4.5 mMol/L (3.7-5.1)
--- NOTE | 2017-04-03 07:38 | NUR ---
Significant Event: Patient alert and oriented x3. Vital signs stable. Complained of pain to right leg. Percocet 2 tabs given X1 with relief. Also complained of pain/rubbing from metal on immobilizer. RN attempted to pad with relief to patient. Patient unstrapped immobilizer frequently complaining of pain/discomfort. Daughter stated PA said it was OK to do so. Daughter also took off part of dressing to right foot/leg. Stated patient was complaining of burning to side of foot and noticed it looked "weird." RN assessed foot and noticed bony prominence to side of foot. Pulses palpable, able to wiggle toes and foot, no pain upon palpation, warm to touch, cap refill good to all toes. Daughter wants X-Ray of patient's foot before dismissal. Turned Q2 and PRN. Patient needs frequent reminders to use sternal precautions. Sternum stapled and open to air. CT site dressings C/D/I. [place] sites to left leg open to air. Patient ate very little. Refused carb count coverage. No coverage needed with HS accucheck. Patient full lift. Calm and cooperative with all cares. Follow Up: Waiting on placement. X-Ray of right foot?
--- NOTE | 2017-04-03 11:28 | NUR ---
Patient A/O x 3. Full lift. Vital signs stable: HR 87, RR 18, BP 100/63, O2 saturation 97% on room air, temperature 97.8F, and denies pain or shortness of breath. Lung sounds clear and diminished. Sternal incision and old chest tube sites x 4 open to air with edges approximated and no signs/symptoms of infection. Left leg harvest sites x 3, sutured without signs of infection. Bowel sounds active with last BM yesterday. Valdez patient with good urine output. Right leg with cast padding, drew wrap, and immobilizer in place. Non weight bearing on right leg. Accu checks ACHS, Family and patient agreeable to transfer to [facility]. Report given to Manuela Denton RN at [facility]. No other questions at this time. Greta MCKAY 04/03/17 [id number]
--- NOTE | 2017-04-03 13:00 | NUR ---
RU Hopson at [facility] stating that they can accept Laura today and Dr.Casper Danielle will be the MD to accept. I phoned up to Ti RN on PCU, let her know that we were going to dismiss Laura today of MD felt like she was stable to do so. I phoned to and Graciela Gastelum, PA and WOODY Mata phoned to to notify them that we had an accepting MD and facilty so they could come and complete orders. was going to call in MD to MD report, phone number was left on the chart for her to call to . RN to RN number was left with RN Adolfo to call in report as well. I stopped by [facility]' room. Talked with her and daughter about [facility] being able to accept, they were both in agreement to go to [facility] today. Daughter is going to follow her mom in the ambulance down to [facility]. Let them know that I was going to set up the ambulance for 1130 today. They were again in agreement with this plan. Dismissal orders were obtained and faxed over to [facility] prior to her leaving. Denied any other further questions, needs or concerns. Plan for transfer to [facility] today via ambulance at 1130.
--- NOTE | 2017-04-03 14:23 | NUR ---
PT NOT APPROPRIATE FOR DIET INSTRUCTION AT THIS TIME; PT IS BEING D/C TO [facility].
== END 2017-04-03 12:45 | disposition swing bed (61) | DRG 480 ==
LOC: G3N 13:30 → GICU 16:00 → GPCU 16:00 → GICU 03-27 07:24 → GPCU 03-31 04:08
PROVIDERS: Family Medicine; Internal Medicine; Internal Medicine Cardiovascular Disease; Nurse Practitioner Family; Nurse Practitioner Women's Health; Physician Assistant Medical; Thoracic Surgery (Cardiothoracic Vascular Surgery); ADMIT Orthopaedic Surgery Adult Reconstructive Orthopaedic Surgery
PROC: 0QSB04Z Reposition Right Lower Femur with Internal Fixation Device, Open Approach (ICD-10-PCS; principal; 2017-03-22)
PROC: 4A023N7 Measurement of Cardiac Sampling and Pressure, Left Heart, Percutaneous Approach (ICD-10-PCS; 2017-03-23)
PROC: B2111ZZ Fluoroscopy of Multiple Coronary Arteries using Low Osmolar Contrast (ICD-10-PCS; 2017-03-23)
PROC: 05HM33Z Insertion of Infusion Device into Right Internal Jugular Vein, Percutaneous Approach (ICD-10-PCS; 2017-03-27)
PROC: 4A1239Z Monitoring of Cardiac Output, Percutaneous Approach (ICD-10-PCS; 2017-03-27)
PROC: B246ZZ4 Ultrasonography of Right and Left Heart, Transesophageal (ICD-10-PCS; 2017-03-27)
PROC: 03HB33Z Insertion of Infusion Device into Right Radial Artery, Percutaneous Approach (ICD-10-PCS; 2017-03-27)
DX: S72.401A Unspecified fracture of lower end of right femur, initial encounter for closed fracture (principal); I21.4 Non-ST elevation (NSTEMI) myocardial infarction; I50.23 Acute on chronic systolic (congestive) heart failure; M97.01XA Periprosthetic fracture around internal prosthetic right hip joint, initial encounter; D62 Acute posthemorrhagic anemia; W18.30XA Fall on same level, unspecified, initial encounter; I25.10 Atherosclerotic heart disease of native coronary artery without angina pectoris; Z95.1 Presence of aortocoronary bypass graft; I11.0 Hypertensive heart disease with heart failure; E11.9 Type 2 diabetes mellitus without complications; Z79.4 Long term (current) use of insulin; R63.0 Anorexia; Z68.31 Body mass index [BMI] 31.0-31.9, adult; I25.5 Ischemic cardiomyopathy
CPT/HCPCS: C1713; C1769; C1894; J0171; J0282; J0690; J1170; J1250; J1644; J1940; J2150; J2250; J2270; J2440; J2720; J3010; J3475; J3480; J3490; J7030; J7040; J7042; J7050; J7060; J7121; P9016; P9045; P9047; Q4081

== ENCOUNTER → 2017-04-03 | Outpatient (CLI) | payer MEDICARE, OTHER ==
[~2017-04-03] MED LIST: ADVIL200 M1 PO; ASPIRIN EC325 MG PO; B COMPLETE1 EACH PO; BENADRYL25 MG PO; GLUCOPHAGE850 MG PO; HYDROCORTISON28.4 G2 TOP; OSCAL + D500 MG PO; PAIN RELIEVER PO; PRINIVIL OR ZES10 MG PO; PROAIR HFA8.5 GM INH; THERAGRAN-M1 TAB PO; TYLENOL325 MG PO
== END ==
LOC: GAMB 12:53
DX: S72.91XA Unspecified fracture of right femur, initial encounter for closed fracture (principal); I25.10 Atherosclerotic heart disease of native coronary artery without angina pectoris; I10 Essential (primary) hypertension; E11.9 Type 2 diabetes mellitus without complications; E78.5 Hyperlipidemia, unspecified; M79.651 Pain in right thigh; J45.909 Unspecified asthma, uncomplicated; R79.89 Other specified abnormal findings of blood chemistry; R07.9 Chest pain, unspecified; Z79.82 Long term (current) use of aspirin; Z79.4 Long term (current) use of insulin; Z79.899 Other long term (current) drug therapy
CPT/HCPCS: A0425; A0428